=== PATIENT | female | born 1990 | race Caucasian/White ===

== ENCOUNTER 2016-10-24 13:54 | Emergency (ER) | payer OTHER ==
[2016-10-24] MEDS ORDERED: KETOROLAC 30 MG/ML 1 ML VIAL IVP STA (14:40)
[2016-10-24] MEDS ORDERED: SODIUM CHLORIDE 0.9% 1,000 ML IV ONE (14:40)
--- NOTE | 2016-10-24 14:56 | ED ---
Extremity Problem HPI - General Chief complaint: Extremity Problem,Nontraumatic Stated complaint: Leg Numbness/swelling Time Seen by Provider: 10/24/16 14:11 Source: patient Mode of arrival: ambulatory Limitations: no limitations - History of Present Illness Initial comments: 26-year-old female with a history of heroin abuse presented for evaluation of 3 weeks right lower extremity numbness tingling and swelling from the upper thigh down. She states she woke up one morning and her symptoms were present and are worse with any lower extremity movement or pressure. Her pain is alleviated when she lays on her left side and elevates the affected leg although the pain is only reduced and is still present. She denies discoloration of the right lower extremity or cold sensation but states she will feel numbness and tingling constantly and if she should move the leg have extreme pain that shoots throughout her entire leg. She denies any back pain abdominal pain or dysuria. There is no preceding trauma and she denies any low back pain following lifting or physical activity. She is a smoker but denies an control use, bleeding/clotting disorders, history of cancer or treatment for it , hemoptysis, recent surgery, recent immobilization for extended period of time. - Related Data Previous Rx's Medication Instructions Recorded Diazepam [Valium] 5 mg PO BID #6 tab 10/24/16 HYDROcodone/APAP 5-325MG [[place] 1 - 2 tab PO Q6HR PRN #14 tab 10/24/16 5-325] Ibuprofen [Motrin] 800 mg PO Q8HR PRN #20 tab 10/24/16 Allergies Allergy/AdvReac Type Severity Reaction Status Date / Time blueberry Allergy Rash/Hives Verified 10/24/16 14:28 tramadol Allergy Unknown Verified 10/24/16 14:28 Review of Systems ROS Statement: Those systems with pertinent positive or pertinent negative responses have been documented in the HPI. General: Patient denies fever, chills,nausea, or vomiting. HEENT: No visual changes. No eye pain. No nasal symptoms. No dysphagia.No odynophagia. No ENT pain. Cardiac: No chest pain. No palpitations. Pulmonary; No dyspnea. Denies cough. Denies hemoptysis. GI: No abdominal pain. No diarrhea. No constipation. No bowel habit changes. No melena. No hematochezia. : No dysuria.No hematuria. No hesitancy. No urgency. No renal lithiasis history. Musculoskeletal: No musculoskeletal pain. Swelling to the thigh of right lower extremity. Orthopedic: Denies fracture history. Denies injury. Integumentary: Denies rash. Denies pruritis. Neurologic: Denies any lateralizing weakness. Positive numbness and tingling from the right thigh distally.. No seizure activity. Denies TIA or CVA. Heme/Onc: Denies anemia. Denies cancer. Denies adenopathy. ROS Other: All systems not noted in ROS Statement are negative. Past Medical History Past Medical History: No Reported History Additional Past Medical History / Comment(s): heroin abuse History of Any Multi-Drug Resistant Organisms: None Reported Past Surgical History: Adenoidectomy, Tonsillectomy Past Anesthesia/Blood Transfusion Reactions: No Reported Reaction Past Psychological History: Anxiety, Depression, PTSD Smoking Status: Current every day smoker Past Alcohol Use History: None Reported Additional Past Alcohol Use History / Comment(s): Patient denies any alcohol use at this time. Past Drug Use History: Heroin Additional Drug Use History / Comment(s): Patient states that she uses IV herion for about three years. - Past Family History Mother Family Medical History: Cancer Father Family Medical History: Unable to Obtain General Exam - General Exam Comments Initial Comments: General: The patient is awake and alert, in no distress, and does not appear acutely ill. Eye: Pupils are equal, round and reactive to light, extra-ocular movements are intact; there is normal conjunctiva bilaterally. No signs of icterus. Ears, nose, mouth and throat: There are moist mucous membranes and no oral lesions. Neck: The neck is supple, there is no tenderness or JVD. Cardiovascular: There is a regular rate and rhythm. No murmur, rub or gallop is appreciated. Respiratory: Lungs are clear to auscultation, respirations are non-labored, breath sounds are equal. No wheezes, stridor, rales, or rhonchi. Gastrointestinal: Soft, non-distended, non-tender abdomen without masses or organomegaly noted. There is no rebound or guarding present. No CVA tenderness. Bowel sounds are unremarkable. Back: There is no tenderness to palpation in the midline. There is no obvious deformity. No rashes noted. Musculoskeletal: Normal ROM, no tenderness, There is no pedal edema. There is no calf tenderness or swelling. Sensation intact. Pulses equal bilaterally 2+. Neurological: CN II-XII intact, There are no obvious motor or sensory deficits. Coordination appears grossly intact. Speech is normal. Skin: Skin is warm and dry and no rashes or lesions are noted. Psychiatric: Cooperative, appropriate mood & affect, normal judgment. Limitations: no limitations Course Vital Signs 10/24/16 14:00 Temperature 97.5 F L Pulse Rate 94 Respiratory 20 Rate Blood Pressure 128/94 O2 Sat by Pulse 100 Oximetry Medical Decision Making - Medical Decision Making 26-year-old female with past medical history apparent abuse presented for evaluation of right thigh pain and swelling for the past 3 weeks. She states that the onset was sudden when she woke up one morning and has continued since with numbness and tingling radiating down the leg, swelling and firmness at the upper thigh. Pain is constant but mildly alleviated when she lays on her left side and worse with movement or pressure. She denies any preceding trauma, back pain, or abdominal pain. Physical examination reveals a right lower extremity that is neurovascularly intact with normal pulses, sensation, and motor function. Skin color is equal to the left leg and there is no abnormality noted to the right upper thigh. There is no back pain or belly pain to palpation. Straight leg test elicits thigh pain but there is no radiation down the leg to the ankle or foot and therefore is negative. Will obtain labs, right lower cavity duplex, and provide IV fluid and pain control. Labs are significant for an elevated d-dimer. Rest for labs revealed no significant abnormalities and the lower extremity duplex did not show a DVT. These results were discussed with the patient and through shared decision making she decided that she would prefer to be discharged without a CT chest with IV contrast to rule out PE. She was informed that she would need to follow -up with her primary care physician for repeat ultrasound within the next week or 2. She was further advised to return to this facility if her symptoms should worsen or persist including but not limited to: Right lower extremity discoloration, loss of sensation or motor function, loss of pulse in the right lower extremity, rapid swelling of the right lower extremity, shortness of breath, chest pain. She acknowledged an understanding of this information and agreed with this plan of care. - Lab Data Result diagrams: 10/24/16 15:00 10/24/16 15:00 Lab Results 10/24/16 10/24/16 10/24/16 Range/Units 15:00 15:00 15:00 WBC 7.2 (3.8-10.6) k/uL RBC 4.21 (3.80-5.40) m/uL Hgb 11.9 (11.4-16.0) gm/dL Hct 35.9 (34.0-46.0) % MCV 85.2 (80.0-100.0) fL MCH 28.4 (25.0-35.0) pg MCHC 33.3 (31.0-37.0) g/dL RDW 12.9 (11.5-15.5) % Plt Count 294 (150-450) k/uL Neutrophils % 73 % Lymphocytes % 18 % Monocytes % 6 % Eosinophils % 1 % Basophils % 0 % Neutrophils # 5.3 (1.3-7.7) k/uL Lymphocytes # 1.3 (1.0-4.8) k/uL Monocytes # 0.4 (0-1.0) k/uL Eosinophils # 0.1 (0-0.7) k/uL Basophils # 0.0 (0-0.2) k/uL D-Dimer 0.99 H (<0.60) mg/L FEU Sodium 140 (137-145) mmol/L Potassium 4.4 (3.5-5.1) mmol/L Chloride 105 (98-107) mmol/L Carbon Dioxide 23 (22-30) mmol/L Anion Gap 12 mmol/L BUN 5 L (7-17) mg/dL Creatinine 0.59 (0.52-1.04) mg/dL Est GFR (MDRD) Af Amer >60 (>60 ml/min/1.73 sqM) Est GFR (MDRD) Non-Af >60 (>60 ml/min/1.73 sqM) Glucose 184 H (74-99) mg/dL Calcium 9.3 (8.4-10.2) mg/dL Urine Color Urine Appearance (Clear) Urine pH (5.0-8.0) Ur Specific [place] (1.001-1.035) Urine Protein (Negative) Urine Glucose (UA) (Negative) Urine Ketones (Negative) Urine Blood (Negative) Urine Nitrate (Negative) Urine Bilirubin (Negative) Urine Urobilinogen (<2.0) mg/dL Ur Leukocyte Esterase (Negative) Urine RBC (0-5) /hpf Urine WBC (0-5) /hpf Ur Squamous Epith Cells (0-4) /hpf Urine Bacteria (None) /hpf Urine HCG, Qual (Not Detectd) 10/24/16 10/24/16 Range/Units 17:13 17:13 WBC (3.8-10.6) k/uL RBC (3.80-5.40) m/uL Hgb (11.4-16.0) gm/dL Hct (34.0-46.0) % MCV (80.0-100.0) fL MCH (25.0-35.0) pg MCHC (31.0-37.0) g/dL RDW (11.5-15.5) % Plt Count (150-450) k/uL Neutrophils % % Lymphocytes % % Monocytes % % Eosinophils % % Basophils % % Neutrophils # (1.3-7.7) k/uL Lymphocytes # (1.0-4.8) k/uL Monocytes # (0-1.0) k/uL Eosinophils # (0-0.7) k/uL Basophils # (0-0.2) k/uL D-Dimer (<0.60) mg/L FEU Sodium (137-145) mmol/L Potassium (3.5-5.1) mmol/L Chloride (98-107) mmol/L Carbon Dioxide (22-30) mmol/L Anion Gap mmol/L BUN (7-17) mg/dL Creatinine (0.52-1.04) mg/dL Est GFR (MDRD) Af Amer (>60 ml/min/1.73 sqM) Est GFR (MDRD) Non-Af (>60 ml/min/1.73 sqM) Glucose (74-99) mg/dL Calcium (8.4-10.2) mg/dL Urine Color Light Yellow Urine Appearance Cloudy H (Clear) Urine pH 6.5 (5.0-8.0) Ur Specific [place] 1.003 (1.001-1.035) Urine Protein Negative (Negative) Urine Glucose (UA) Negative (Negative) Urine Ketones Negative (Negative) Urine Blood Trace H (Negative) Urine Nitrate Positive H (Negative) Urine Bilirubin Negative (Negative) Urine Urobilinogen <2.0 (<2.0) mg/dL Ur Leukocyte Esterase Trace H (Negative) Urine RBC 1 (0-5) /hpf Urine WBC 9 H (0-5) /hpf Ur Squamous Epith Cells 12 H (0-4) /hpf Urine Bacteria Rare H (None) /hpf Urine HCG, Qual Not Detected (Not Detectd) Disposition Clinical Impression: Thigh pain, Elevated d-dimer, Asymptomatic bacteriuria Disposition: HOME SELF-CARE Condition: Stable Instructions: Deep Venous Thrombosis (ED), Leg Edema (ED) Prescriptions: Diazepam [Valium] 5 mg PO BID #6 tab HYDROcodone/APAP 5-325MG [[place] 5-325] 1 - 2 tab PO Q6HR PRN #14 tab PRN Reason: Analgesia Ibuprofen [Motrin] 800 mg PO Q8HR PRN #20 tab PRN Reason: Analgesia Referrals: None,Stated [Primary Care Provider] - 1-2 days Time of Disposition: 17:45
[2016-10-24 15:32] LABS: Anion Gap 12 mmol/L; Blood Urea Nitrogen 5 mg/dL (7-17); Calcium 9.3 mg/dL (8.4-10.2); Carbon Dioxide 23 mmol/L (22-30); Chloride 105 mmol/L (98-107); Glucose 184 mg/dL (74-99); Non-African American GFR(MDRD) >60 (>60 ml/min/1.73 sqM); Potassium 4.4 mmol/L (3.5-5.1); Sodium 140 mmol/L (137-145)
--- NOTE | 2016-10-24 15:34 | XR ---
EXAMINATION TYPE: XR lumbar spine 2 or 3V DATE OF EXAM: 10/24/2016 3:24 PM COMPARISON: 11/03/2014 HISTORY: 26-year-old female right-sided leg pain and back pain. TECHNIQUE: 3 views FINDINGS: 5 lumbar type vertebral bodies. There is mild facet arthropathy lower lumbar spine. Vertebral body he ights are preserved and alignment is maintained. IMPRESSION: Mild facet arthropathy lower lumbar spine. No vertebral compression collapse or malalignment.
[2016-10-24 15:36] LABS: Basophils % (A) 0 %; CH 28.8; Eosinophils # (A) 0.1 k/uL (0-0.7); Eosinophils % (A) 1 %; HCT 35.9 % (34.0-46.0); HDW 2.82; HGB 11.9 gm/dL (11.4-16.0); Luc # (Auto) 0.16; Luc % (Auto) 2; Lymphocytes # (A) 1.3 k/uL (1.0-4.8); Lymphocytes % (A) 18 %; MCH 28.4 pg (25.0-35.0); MCHC 33.3 g/dL (31.0-37.0); MCV 85.2 fL (80.0-100.0); Mean Platelet Volume 8.3; Monocytes # (A) 0.4 k/uL (0-1.0); Monocytes % (A) 6 %; Neutrophils # (A) 5.3 k/uL (1.3-7.7); Neutrophils % (A) 73 %; RBC 4.21 m/uL (3.80-5.40); RDW 12.9 % (11.5-15.5); WBC 7.2 k/uL (3.8-10.6); WBC (Perox) 7.95
--- NOTE | 2016-10-24 16:36 | US ---
EXAMINATION TYPE: US venous doppler duplex LE RT DATE OF EXAM: 10/24/2016 4:13 PM COMPARISON: NONE CLINICAL HISTORY: 26-year-old female with right leg numbness and swelling, with right leg pain in the posterior and medial thigh. TECHNIQUE: Doppler ultrasound examination of the right lower extremity. FINDINGS: SIDE PERFORMED: Right VESSELS IMAGED: External Iliac Vein (EIV) Common Femoral Vein Deep Femoral Vein Greater Saphenous Vein * Femoral Vein Popliteal Vein Small Saphenous Vein * Proximal Calf Veins (* superficial vessels) Right Leg: Appears negative for DVT IMPRESSION: No evidence for DVT within the right lower extremity imaged from the groin to the upper calf.
[2016-10-24 17:31] LABS: Appearance,Urine Cloudy (Clear); Bacteria,Urine Rare /hpf; Bilirubin,Urine Negative (Negative); Glucose,Urine (UA) Negative (Negative); Ketones,Urine Negative (Negative); Leukocyte Esterase,Urine Trace (Negative); Nitrite,Urine Positive (Negative); PH, Urine 6.5 (5.0-8.0); Particle Count 9134; Protein,Urine Negative (Negative); RBC,Urine 1 /hpf (0-5); Specific Gravity,Urine 1.003 (1.001-1.035); Squamous Epithelial Cell,Urine 12 /hpf (0-4); UA Billing (MACRO vs. MICRO) MICRO; Urobilinogen,Urine <2.0 mg/dL (<2.0); WBC,Urine 9 /hpf (0-5)
[2016-10-24 17:53] VITALS: BP 122/74; PULSE 88; RESP 18; TEMP 97.9
== END 2016-10-24 17:51 | disposition home or self-care (01) ==
LOC: EC 13:54
DX: M79.651 Pain in right thigh (principal); R79.1 Abnormal coagulation profile; R82.71 Bacteriuria; F17.200 Nicotine dependence, unspecified, uncomplicated; Z88.5 Allergy status to narcotic agent; F11.10 Opioid abuse, uncomplicated
CPT/HCPCS: 36415; 85379; 80048; 85025; 81001; 81025; 87086; 87077; 87186; 72100; 93971; 99284; 96374; 96361 ×3; J1885

== ENCOUNTER 2016-10-25 19:47 | Observation (INO) | payer OTHER ==
--- NOTE | 2016-10-25 21:47 | ED ---
General Adult HPI <Aleks Osullivan - Last Filed: 10/26/16 00:59> - General Source: patient, RN notes reviewed Mode of arrival: ambulatory Limitations: no limitations <Keri Morris - Last Filed: 10/26/16 03:22> - General Chief complaint: Recheck/Abnormal Lab/Rx Stated complaint: Leg Pain Time Seen by Provider: 10/25/16 21:19 - History of Present Illness Initial comments: This is a 26-year-old female presents with right leg pain 3 weeks. Patient states the pain is worse to the posterior right thigh. Patient states the pain occurred suddenly, patient states she woke up in the morning and when she sat on the toilet she noticed pain to the right thigh. Patient states the pain radiates down through the right leg and she has intermittent numbness. Patient denies any injury to the area. Patient denies any back pain. Patient admits to IV drug use and tobacco use. Patient states she was treated in the [facility] yesterday for this and sent home on [place] and Valium but these have not helped. Patient is able to ambulate but this is painful. Patient denies any recent fever, chills, shortness breath, chest pain, abdominal pain, nausea/vomiting/ diarrhea, hematuria, headache, or visual changes, or any other complaints. (Keri Morris) - Related Data Previous Rx's Medication Instructions Recorded Diazepam [Valium] 5 mg PO BID #6 tab 10/24/16 HYDROcodone/APAP 5-325MG [[place] 1 - 2 tab PO Q6HR PRN #14 tab 10/24/16 5-325] Ibuprofen [Motrin] 800 mg PO Q8HR PRN #20 tab 10/24/16 Allergies Allergy/AdvReac Type Severity Reaction Status Date / Time blueberry Allergy Rash/Hives Verified 10/24/16 14:28 tramadol Allergy Unknown Verified 10/24/16 14:28 Review of Systems ROS Other: All systems not noted in ROS Statement are negative. <Aleks Osullivan - Last Filed: 10/26/16 00:59> ROS Other: All systems not noted in ROS Statement are negative. <Keri Morris - Last Filed: 10/26/16 03:22> ROS Statement: Those systems with pertinent positive or pertinent negative responses have been documented in the HPI. Past Medical History Past Medical History: No Reported History Additional Past Medical History / Comment(s): heroin abuse History of Any Multi-Drug Resistant Organisms: None Reported Past Surgical History: Adenoidectomy, Tonsillectomy Past Anesthesia/Blood Transfusion Reactions: No Reported Reaction Past Psychological History: Anxiety, Depression, PTSD Smoking Status: Current every day smoker Past Alcohol Use History: None Reported Additional Past Alcohol Use History / Comment(s): Patient denies any alcohol use at this time. Past Drug Use History: Heroin Additional Drug Use History / Comment(s): Patient states that she uses IV herion for about three years. - Past Family History Mother Family Medical History: Cancer Father Family Medical History: Unable to Obtain <Keri Morris - Last Filed: 10/26/16 03:22> General Exam <Aleks Osullivan - Last Filed: 10/26/16 00:59> Limitations: no limitations <Keri Morris - Last Filed: 10/26/16 03:22> - General Exam Comments Initial Comments: General: The patient is awake and alert, in no distress, and does not appear acutely ill. Neck: The neck is supple, there is no tenderness or JVD. Cardiovascular: There is a regular rate and rhythm. No murmur, rub or gallop is appreciated. Respiratory: Lungs are clear to auscultation, respirations are non-labored, breath sounds are equal. No wheezes, stridor, rales, or rhonchi. Musculoskeletal: Patient is tender to the posterior right thigh. There is mild swelling to the medial aspect of the right thigh seen best with standing, but no erythema, warmth or ecchymosis. There is no tenderness over the lumbar spine paraspinal muscles. Full range of motion, strength 5/5 and Sensation intact. Posterior tibial pulses 2+ bilaterally. Neurological: A&O x 3. CN II-XII intact, There are no obvious motor or sensory deficits. Coordination appears grossly intact. Speech is normal. Skin: Skin is warm and dry and no rashes or lesions are noted. Psychiatric: Normal mood and affect. (Keri Morris) Course <Aleks Osullivan - Last Filed: 10/26/16 00:59> <Keri Morris - Last Filed: 10/26/16 03:22> Vital Signs 10/25/16 10/25/1617 20:46 22:37 00:47 Temperature 98.9 F 98.8 F Pulse Rate 118 H 110 H 100 Respiratory 20 20 18 Rate Blood Pressure 128/75 120/59 112/65 O2 Sat by Pulse 100 98 98 Oximetry 10/26/16 02:19 Temperature 98 F Pulse Rate 98 Respiratory 18 Rate Blood Pressure 111/55 O2 Sat by Pulse 98 Oximetry - Reevaluation(s) Reevaluation #1: 10/26/16 00:59 Case was discussed with Dr. Blakely, who will admit for hospital call. (Aleks Osullivan) Medical Decision Making - Lab Data Result diagrams: 10/25/16 22:13 10/25/16 22:13 <Aleks Osullivan - Last Filed: 10/26/16 00:59> - Lab Data Result diagrams: 10/25/16 22:13 10/25/16 22:13 <Keri Morris - Last Filed: 10/26/16 03:22> - Medical Decision Making Patient reevaluated by myself, Dr. Osullivan. Patient updated on results and plan. Patient will be admitted with IV antibiotics and infectious disease consult. Dr. Blakely has been paged for medical admission. (Aleks Osullivan) This is a 26-year-old female presents with right posterior leg pain 3 weeks. On physical exam Patient is tender to the posterior right thigh. There is mild swelling to the medial aspect of the right thigh seen best with standing, but no erythema, warmth or ecchymosis. There is no tenderness over the lumbar spine paraspinal muscles. Full range of motion, strength 5/5 and Sensation intact. Posterior tibial pulses 2+ bilaterally. Patient had an xray of the lumbar spine yesterday showing: Mild facet arthropathy lower lumbar spine. No vertebral compression clots or malalignment. Report read by Dr. Granger CT of the right lower extremity was done and reviewed showing: There is evidence of edema in the adductor taina muscle bundle of the right upper thigh and the posterior medial aspect with central fluid collection consistent with a small abscess surrounding edema within the muscle. No fracture. Reported by Dr. Chopra. Labs were drawn and UA/UC done and reviewed. Discussed results with patient. Blood cultures pending. Discussed this case with attending physician Dr. Osullivan who contacted Dr. Goodyear and patient will be admitted as an inpatient for IV antibiotics and ID consult. (Keri Morris) - Lab Data Lab Results 10/25/16 10/25/16 10/25/16 Range/Units 22:13 22:13 22:13 WBC 9.3 (3.8-10.6) k/uL RBC 3.71 L (3.80-5.40) m/uL Hgb 10.6 L (11.4-16.0) gm/dL Hct 30.7 L (34.0-46.0) % MCV 82.9 (80.0-100.0) fL MCH 28.5 (25.0-35.0) pg MCHC 34.3 (31.0-37.0) g/dL RDW 13.1 (11.5-15.5) % Plt Count 257 (150-450) k/uL Neutrophils % 66 % Lymphocytes % 25 % Monocytes % 6 % Eosinophils % 1 % Basophils % 0 % Neutrophils # 6.1 (1.3-7.7) k/uL Lymphocytes # 2.3 (1.0-4.8) k/uL Monocytes # 0.6 (0-1.0) k/uL Eosinophils # 0.1 (0-0.7) k/uL Basophils # 0.0 (0-0.2) k/uL Sodium 138 (137-145) mmol/L Potassium 4.4 (3.5-5.1) mmol/L Chloride 102 (98-107) mmol/L Carbon Dioxide 24 (22-30) mmol/L Anion Gap 12 mmol/L BUN 10 (7-17) mg/dL Creatinine 0.60 (0.52-1.04) mg/dL Est GFR (MDRD) Af Amer >60 (>60 ml/min/1.73 sqM) Est GFR (MDRD) Non-Af >60 (>60 ml/min/1.73 sqM) Glucose 95 (74-99) mg/dL Calcium 9.2 (8.4-10.2) mg/dL Total Bilirubin 0.4 (0.2-1.3) mg/dL AST 11 L (14-36) U/L ALT 24 (9-52) U/L Alkaline Phosphatase 69 (38-126) U/L Total Protein 7.1 (6.3-8.2) g/dL Albumin 3.7 (3.5-5.0) g/dL Urine Color Yellow Urine Appearance Cloudy H (Clear) Urine pH 6.5 (5.0-8.0) Ur Specific [place] 1.008 (1.001-1.035) Urine Protein Negative (Negative) Urine Glucose (UA) Negative (Negative) Urine Ketones Negative (Negative) Urine Blood Trace H (Negative) Urine Nitrate Positive H (Negative) Urine Bilirubin Negative (Negative) Urine Urobilinogen <2.0 (<2.0) mg/dL Ur Leukocyte Esterase Moderate H (Negative) Urine RBC 2 (0-5) /hpf Urine WBC 13 H (0-5) /hpf Ur Squamous Epith Cells 2 (0-4) /hpf Urine Bacteria Few H (None) /hpf Urine Mucus Many H (None) /hpf Disposition <Aleks Osullivan - Last Filed: 10/26/16 00:59> Decision Time: 01:51 <Keri Morris - Last Filed: 10/26/16 03:22> Clinical Impression: Abscess of muscle Disposition: ADMITTED IP TO THIS HOSP
[2016-10-25] MEDS ORDERED: RX INFO: IV CONTRAST WAS GIVEN 1 EACH MISC MISCELLANE PRN (21:49)
[2016-10-25] MEDS ORDERED: SODIUM CHLORIDE 0.9% 1,000 ML IV ONE (21:56)
[2016-10-25] MEDS ORDERED: ACETAMINOPHEN IV (For NPO) 1,000 MG in EMPTY BAG 1 BAG IVPB STA (21:56)
[2016-10-25 22:34] LABS: Basophils % (A) 0 %; CH 28.9; CHCM 35.1; Eosinophils # (A) 0.1 k/uL (0-0.7); Eosinophils % (A) 1 %; HCT 30.7 % (34.0-46.0); HDW 2.91; HGB 10.6 gm/dL (11.4-16.0); Luc # (Auto) 0.19; Luc % (Auto) 2; Lymphocytes # (A) 2.3 k/uL (1.0-4.8); Lymphocytes % (A) 25 %; MCH 28.5 pg (25.0-35.0); MCHC 34.3 g/dL (31.0-37.0); MCV 82.9 fL (80.0-100.0); Mean Platelet Volume 7.5; Monocytes # (A) 0.6 k/uL (0-1.0); Monocytes % (A) 6 %; Neutrophils # (A) 6.1 k/uL (1.3-7.7); Neutrophils % (A) 66 %; RBC 3.71 m/uL (3.80-5.40); RDW 13.1 % (11.5-15.5); WBC 9.3 k/uL (3.8-10.6); WBC (Perox) 9.53
[2016-10-25 22:49] LABS: ALT 24 U/L (9-52); AST 11 U/L (14-36); Alkaline Phosphatase 69 U/L (38-126); Anion Gap 12 mmol/L; Blood Urea Nitrogen 10 mg/dL (7-17); Calcium 9.2 mg/dL (8.4-10.2); Carbon Dioxide 24 mmol/L (22-30); Chloride 102 mmol/L (98-107); Glucose 95 mg/dL (74-99); Non-African American GFR(MDRD) >60 (>60 ml/min/1.73 sqM); Potassium 4.4 mmol/L (3.5-5.1); Sodium 138 mmol/L (137-145); Total Bilirubin 0.4 mg/dL (0.2-1.3); Total Protein 7.1 g/dL (6.3-8.2)
[2016-10-25 22:50] LABS: Appearance,Urine Cloudy (Clear); Bacteria,Urine Few /hpf; Bilirubin,Urine Negative (Negative); Glucose,Urine (UA) Negative (Negative); Ketones,Urine Negative (Negative); Leukocyte Esterase,Urine Moderate (Negative); Mucus,Urine Many /hpf; Nitrite,Urine Positive (Negative); PH, Urine 6.5 (5.0-8.0); Particle Count 63559; Protein,Urine Negative (Negative); RBC,Urine 2 /hpf (0-5); Specific Gravity,Urine 1.008 (1.001-1.035); Squamous Epithelial Cell,Urine 2 /hpf (0-4); UA Billing (MACRO vs. MICRO) MICRO; Urobilinogen,Urine <2.0 mg/dL (<2.0); WBC,Urine 13 /hpf (0-5)
--- NOTE | 2016-10-25 23:09 | CT ---
EXAMINATION TYPE: CT lower extremity RT w con DATE OF EXAM: 10/25/2016 10:38 PM COMPARISON: NONE HISTORY: abscess swelling pain to posterior right thigh CT DLP: 635.20 mGycm Automated exposure control for dose reduction was used. CONTRAST: Performed with IV Contrast, patient injected with 100 mL of Omnipaque 300. FINDINGS: There is a 12 x 8 cm area of relative low attenuation within the posterior muscles of the upper thigh on the right side. There is a central 2 cm fluid collection. I see no bony destructive process. Ther e is no evidence for fracture. I see no focal bone destruction. I see no pathologic enhancement. IMPRESSION: THERE IS EVIDENCE OF EDEMA IN THE ADDUCTOR BRITTNI MUSCLE BUNDLE OF THE RIGHT UPPER THIGH ON THE POSTE RIOR MEDIAL ASPECT WITH CENTRAL FLUID COLLECTION CONSISTENT WITH A SMALL ABSCESS AND SURROUNDING MICHAEL A WITHIN THE MUSCLE. NO FRACTURE.
[2016-10-26] MEDS ORDERED: MORPHINE SULFATE 2 MG/ML SYRINGE IV PRN (00:01)
[2016-10-26] MEDS ORDERED: IBUPROFEN 400 MG TAB PO PRN (01:29)
[2016-10-26] MEDS ORDERED: ACETAMINOPHEN TAB 325 MG TAB PO PRN (01:29)
[2016-10-26] MEDS ORDERED: NALOXONE 0.4 MG/ML 1 ML VIAL IV PRN (01:29)
[2016-10-26] MEDS ORDERED: VANCOMYCIN 1,000 MG in SODIUM CHLORIDE 0.9% 250 ML IVPB STA (01:32)
[2016-10-26] MEDS ORDERED: AMPICILLIN-SULBACTAM 3 GM in SODIUM CHLORIDE 0.9% 100 ML IVPB STA (01:50)
[2016-10-26] MEDS: MORPHINE SULFATE 2 MG/ML SYRINGE IV STA ×2 (02:08→12:47)
[2016-10-26] MEDS: SODIUM CHLORIDE 0.9% 1,000 ML IV SCH (03:31)
[2016-10-26] MEDS: MORPHINE SULFATE 4 MG/ML SYRINGE IV PRN ×4 (06:29→20:44)
[2016-10-26] MEDS ORDERED: AMPICILLIN-SULBACTAM 3 GM in SODIUM CHLORIDE 0.9% 50 ML IVPB SCH (08:00)
[2016-10-26] MEDS: AMPICILLIN-SULBACTAM 3 GM in SODIUM CHLORIDE 0.9% 100 ML IVPB SCH ×2 (11:16→16:57)
[2016-10-26] MEDS: cloNIDine HCL 0.1 MG TAB PO SCH ×3 (11:17→20:43)
--- NOTE | 2016-10-26 14:47 | HP ---
DATE OF ADMISSION: CHIEF COMPLAINT: Abscess in the thigh(?) HISTORY OF PRESENT ILLNESS: This 26-year-old IVDA was admitted through the emergency room. She came in complaining of an abscess on the right lower buttock area and was evaluated in the emergency room and admitted. Apparently this is "not visible." She is an everyday heroin IV drug abuser. She denies any fever or chills. REVIEW OF SYSTEMS: She has had no change in vision or hearing, chest pain, cough, hemoptysis, purulent sputum, heart disease, murmurs, hypertension, orthopnea, PND, syncope, abdominal pain, nausea, vomiting, hematemesis, melena, hematochezia, jaundice, hematuria, frequency, urgency, vaginal discharge, bleeding, arthralgias, diabetes, etc. Past medical history, personal and social histories are unremarkable, otherwise. She has had no surgery and she is not allergic to any meds. She denies being on any medications. She smokes about a pack of cigarettes a day. PHYSICAL EXAMINATION: Blood pressure 102/55 with a pulse of 49, respirations are 23, she is afebrile. In general, she appeared to be slender and in no acute distress, she is very agitated. Skin color is normal. Skin is warm and dry. The head, ears, eyes, nose, mouth, and throat were normal and the neck veins are not distended. Thyroid is not enlarged. The chest is clear. There are no rales or rhonchi. The cardiac exam is in normal sinus rhythm. No murmurs or extra sounds. The abdomen is soft and nontender. The upper extremities are normal. She points to the right lower buttock areas where the abscess is, but nothing can be seen. Neurologically, she is intact. IMPRESSION: 1. ? perineal abscess. 2. Intravenous drug abuse. PLAN: 1. Bed rest. 2. IV fluids. 3. General Surgery consult.
[2016-10-26 15:33] LABS: Mean Platelet Volume 7.5
[2016-10-26 15:35] LABS: INR 1.1 (<1.1); Prothrombin Time 11.3 sec (9.0-12.0)
[2016-10-26] MEDS ORDERED: IV VANCOMYCIN PER PHARMACY 1 EACH MISC MISCELLANE PRN (20:23)
[2016-10-26] MEDS: VANCOMYCIN 1,250 MG in SODIUM CHLORIDE 0.9% 250 ML IVPB SCH (21:11)
[2016-10-27] MEDS: MORPHINE SULFATE 4 MG/ML SYRINGE IV PRN ×2 (01:53→05:07)
[2016-10-27] MEDS: VANCOMYCIN 1,250 MG in SODIUM CHLORIDE 0.9% 250 ML IVPB SCH (05:08)
[2016-10-27 07:36] LABS: Basophils % (A) 0 %; CH 28.2; CHCM 32.7; Eosinophils # (A) 0.1 k/uL (0-0.7); Eosinophils % (A) 1 %; HCT 30.9 % (34.0-46.0); HDW 2.87; HGB 10.5 gm/dL (11.4-16.0); Luc # (Auto) 0.22; Luc % (Auto) 2; Lymphocytes # (A) 2.5 k/uL (1.0-4.8); Lymphocytes % (A) 27 %; MCH 29.3 pg (25.0-35.0); MCHC 33.8 g/dL (31.0-37.0); MCV 86.7 fL (80.0-100.0); Mean Platelet Volume 6.6; Monocytes # (A) 0.4 k/uL (0-1.0); Monocytes % (A) 4 %; Neutrophils % (A) 65 %; RBC 3.57 m/uL (3.80-5.40); RDW 12.8 % (11.5-15.5); WBC 9.2 k/uL (3.8-10.6); WBC (Perox) 9.77
[2016-10-27 07:54] LABS: ALT 29 U/L (9-52); AST 13 U/L (14-36); Alkaline Phosphatase 76 U/L (38-126); Anion Gap 11 mmol/L; Blood Urea Nitrogen 5 mg/dL (7-17); Calcium 8.7 mg/dL (8.4-10.2); Carbon Dioxide 22 mmol/L (22-30); Chloride 109 mmol/L (98-107); Glucose 121 mg/dL (74-99); Non-African American GFR(MDRD) >60 (>60 ml/min/1.73 sqM); Sodium 142 mmol/L (137-145); Total Bilirubin 0.3 mg/dL (0.2-1.3); Total Protein 6.6 g/dL (6.3-8.2)
--- NOTE | 2016-10-27 08:06 | CONS ---
DATE OF CONSULTATION: 10/26/2016. REASON FOR CONSULTATION: Right thigh abscess. HISTORY OF PRESENT ILLNESS: The patient is a 26-year-old female who has past medical history significant for IV drug use presenting to the ER with chief complaints of right medial and posterior thigh pain. Apparently has been going on for about 3 weeks now. The patient said one morning she woke up and when she sat on the toile she noticed pain in the right thigh area. The patient denies any history of any trauma. There is no swelling. There is no redness. The patient denies injecting into that area. The patient came to the [facility] ER on the and patient was evaluated. She did have a Doppler that was negative for DVT. The patient discharged home on and Presented back last night with chief complaints of persistent pain. Subsequently, re-evaluated by the ER physician when the patient did have a CT of the lower extremity that has been suggestive of a fluid collection in the abductor taina muscle bundle 12 cm likely an abscess with surrounding edema within the muscle. She did receive a dose of vancomycin and started on Unasyn and admitted to the hospital. I was asked to see the patient for further recommendation regarding antibiotics therapy. Patient did not recall if she has any history of MRSA skin and soft tissue infection. Currently no other lesions. Denies having any chest pain, shortness of breath or cough. No abdominal pain or diarrhea. REVIEW OF SYSTEMS: CONSTITUTIONAL: Positive for weakness but no high-grade fever. EYES: No complaint. ENT: No complaint. RESPIRATORY: No complaint. CARDIOVASCULAR: No complaint. GENITOURINARY: No complaint. MUSCULOSKELETAL: As per HPI. INTEGUMENT: No complaint. PSYCHOLOGICAL: No complaint. ENDOCRINE: No complaint. NEUROLOGICAL: No complaint. PAST MEDICAL HISTORY: Anxiety, depression and PTSD, and IV drug abuse. PAST SURGICAL HISTORY: Adenoidectomy, tonsillectomy. SOCIAL HISTORY: The patient current every day smoker. Patient denies any drinking; however does admit to IV drug use for the last 3 years. FAMILY HISTORY: Mother with history of cancer. ALLERGIES: TRAMADOL. Medications include the patient is currently on Catapres, Motrin, morphine sulfate, Narcan, and Unasyn. On examination, blood pressure is 100/64 with a pulse of 64, temperature 100.8. She is 94% on room air. General description is a middle-age female lying in bed in no distress. No tachypnea or accessory muscle of respiration use. HEENT examination shows slight pallor. There is no scleral icterus. Oral mucous membrane is dry. NECK: Trachea central, no thyromegaly. LUNGS: Unlabored breathing. Clear to auscultation anteriorly. HEART: S1, S2 regular rate and rhythm. ABDOMEN: Soft. No tenderness. Right thigh mid and posterior. I did not feel any significant induration or swelling or tenderness to touch. SKIN EXAMINATION: No rash or mass palpable. NEUROLOGICAL: Patient is awake, alert, oriented. Mood and affect normal. LABS: Hemoglobin is 10.3, white count 9.3 with a BUN of 12, creatinine 0.6. Urine was slightly positive. Blood culture has been done which is currently pending. DIAGNOSTIC IMPRESSION AND PLAN: Patient with right mid and posterior thigh pain for about 2 to 3 weeks, now with a high grade fever with CT suspicious for an abscess in a patient who did have history of IV drug use with a question of possible MRSA infection. PLAN: 1. Discontinue Unasyn. 2. Start patient on Vancomycin, pharmacy to dose. 3. Will obtain intervention radiology consultation for drainage of this area and send the fluid for constant culture. 4. Will follow up on the clinical condition and cultures to further adjust the medication if needed. Thank you for this consultation. Will follow this patient along with you. JOSS
[2016-10-27] MEDS ORDERED: HYDROcodone/APAP 5-325MG 1 EACH TAB PO PRN (09:18)
--- NOTE | 2016-10-27 09:29 | P.PN ---
Subjective 26-year-old who presented to the ER with a chief complaint of right medial posterior upper thigh pain. Patient does have a significant past medical history for IV drug use. Apparently the pain started 3 weeks prior she noted it. Patient denied any trauma. There is no redness there is no swelling. Patient denied that she injected into that area. Patient came to the emergency room at [facility] on October 24 was evaluated had a Doppler done which was negative for DVT and was discharged home with [place]. Patient reports presented to the emergency room for persistent pain. Was reevaluated in the emergency room did have a CAT scan of the lower extremity it is suggested of fluid collection in the abductor taina muscle 12 cm likely an abscess with surrounding edema within the muscle. Patient did receive a dose of IV vancomycin and was started on Unasyn. Patient is scheduled today by interventional radiology for possible drainage of this area. Patients being followed by infectious disease. Objective - Vital Signs Vital signs: Vital Signs Temp 98.9 F 10/27/16 08:13 Pulse 75 10/27/16 08:13 Resp 16 10/27/16 08:13 BP 93/51 10/27/16 08:13 Pulse Ox 99 10/27/16 08:13 Intake & Output 10/26/16 10/27/16 10/27/16 18:59 06:59 18:59 Intake Total 444 Balance 444 Intake: Oral 444 Other: Voiding Method Toilet Toilet # Voids 4 2 - Exam Physical exam 26-year-old female resting in bed scheduled today for interventional radiology to evaluate the right upper thigh crushable abscess Lungs essentially clear no shortness of breath no cough Heart S1-S2 audible regular no murmur noted denying chest pain Abdomen soft nontender reports no nausea vomiting Extremities no pedal edema noted right posterior mid thigh tenderness to the touch not able to appreciate any significant swelling or induration Skin no skin rash noted no open sores noted - Labs CBC & Chem 7: 10/27/16 07:02 10/27/16 07:02 Labs: Abnormal Lab Results - Last 24 Hours (Table) 10/27/16 10/27/16 Range/Units 07:02 07:02 RBC 3.57 L (3.80-5.40) m/uL Hgb 10.5 L (11.4-16.0) gm/dL Hct 30.9 L (34.0-46.0) % Chloride 109 H (98-107) mmol/L BUN 5 L (7-17) mg/dL Glucose 121 H (74-99) mg/dL AST 13 L (14-36) U/L Albumin 3.1 L (3.5-5.0) g/dL Assessment and Plan Plan: Impression Present on admission right mid posterior thigh pain onset 2-3 weeks prior computed tomography scan suggest abscess Low-grade temp persist History of IV drug use with a possible "MRSA infection febrile leukocytosis suspect due to abscess right posterior mid thigh CAT scan of the right upper thigh shows evidence of a 12 x 8 cm attenuation suspect fluid abscess not ruled out Polysubstance abuse IV heroin on Anxiety depressive disorder nonspecified Current every day smoker Plan Await infectious disease recommendations antibiotic therapy Scheduled today by interventional radiology for the possible drainage of the abscess in the right posterior upper thigh Pain control Monitor for heroin withdrawal continue Catapres 0.3 3 times a day Monitor blood pressure and heart rate address as indicated DVT and GI prophylaxis Continue IV vancomycin as ordered IV hydration IV fluid at 75 an hour Further recommendations pending The above dictated assessment and findings were discussed with Dr. Blakely Impression and the plan of care have been dictated as directed. Noemi Renner nurse practitioner acting as a scribe for Dr. Blakely
--- NOTE | 2016-10-27 10:59 | US ---
EXAMINATION TYPE: US asp abscess/hemat/cyst ultrasound-guided aspiration of thigh abscess DATE OF EXAM: 10/27/2016 10:49 AM HISTORY: Thigh abscess, mass. Correlation to CT lower extremity 25 October 2016 FINDINGS: Maximal barrier technique was utilized. The skin overlying a suitable path to the patient' s thigh abnormality was localized with ultrasound and the overlying skin prepped and draped. Ultraso und was utilized with sterile technique. Lidocaine was used for local anesthesia. A skin khris was m connie with a scalpel. An 20-gauge needle was advanced under direct ultrasound guidance and aspirated s pecimen obtained of the abscess, approximately 5 cc purulent material was obtained. Specimen submitt ed in formalin to microbiology. Following the procedure, hemostasis achieved and the patient is disc harged in stable condition without complication. Impression: status POST ULTRASOUND GUIDED ASPIRATION BIOPSY OF right thigh abscess, microbiology IS P ENDING. THIS PROCEDURE IS PERFORMED BY THE UNDERSIGNED.
[2016-10-27 12:46] VITALS: BP 119/73; PULSE 87; RESP 16; TEMP 97.5
[2016-10-27] MEDS: cloNIDine HCL 0.1 MG TAB PO SCH (13:04)
[2016-10-27] MEDS: SODIUM CHLORIDE 0.9% 1,000 ML IV SCH (13:05)
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
[2016-10-27] MEDS ORDERED: FAMOTIDINE 20 MG TAB PO SCH (21:00)
[2016-10-28] MEDS ORDERED: VANCOMYCIN TROUGH DUE 1 EACH MISC MISCELLANE ONE (05:00)
--- NOTE | 2016-10-28 14:16 | PN ---
DATE OF SERVICE: 10/27/2016 CHIEF COMPLAINT: Abscess in the buttock. HISTORY OF PRESENT ILLNESS: This lady is going down today for incision and drainage. PHYSICAL EXAM: Chest is clear and cardiac exam is normal and the abdomen is soft, nontender. Abscess could not be palpated. IMPRESSION: Perineal abscess. PLAN: Incision and drainage today or percutaneous evacuation with needle. ADDENDUM: After she got back to the floor, she signed herself out AGAINST MEDICAL ADVICE.
== END 2016-10-27 12:57 | disposition left against medical advice (07) ==
LOC: EC 19:47 → 3OBS 10-26 01:51 → INTOOBSV 10-27 10:06 → OBSVTOIN 10-27 10:06
PROVIDERS: ADMIT Family Medicine; ATTEND Family Medicine
DX: L02.415 Cutaneous abscess of right lower limb (principal); F11.23 Opioid dependence with withdrawal; B95.62 Methicillin resistant Staphylococcus aureus infection as the cause of diseases classified elsewhere; D72.829 Elevated white blood cell count, unspecified; R50.9 Fever, unspecified; F41.9 Anxiety disorder, unspecified; F32.9 Major depressive disorder, single episode, unspecified; F43.10 Post-traumatic stress disorder, unspecified; M46.96 Unspecified inflammatory spondylopathy, lumbar region; R20.0 Anesthesia of skin; R53.1 Weakness; F17.210 Nicotine dependence, cigarettes, uncomplicated; Z79.1 Long term (current) use of non-steroidal anti-inflammatories (NSAID); Z53.21 Procedure and treatment not carried out due to patient leaving prior to being seen by health care provider; Z79.899 Other long term (current) drug therapy; Z80.9 Family history of malignant neoplasm, unspecified; Z88.5 Allergy status to narcotic agent; Z91.018 Allergy to other foods
CPT/HCPCS: 10160 ×2; 99285; 96365; 96366; 96368; 96375; 96376; 36415 ×2; 80053 ×2; 85025 ×2; 85049; 85610; 81001; 87040; 87070; 87086; 87205; 87075; 87077; 87186; 73701; G0378 ×3; J3370 ×2; J2270 ×3; Q9967; J0295; J0131; 96361

== ENCOUNTER 2018-02-12 10:17 | Emergency (ER) | payer OTHER ==
[2018-02-12 10:41] VITALS: RESP 18
[2018-02-12] MEDS ORDERED: KETOROLAC 60 MG/2 ML VIAL IM STA (11:02)
[2018-02-12] MEDS ORDERED: Acetaminophen-Codeine 300-30mg TAB PO STA (11:02)
--- NOTE | 2018-02-12 12:06 | XR ---
EXAMINATION TYPE: XR sacrum coccyx , 3 VIEWS DATE OF EXAM ORDERED: 02/12/2018 HISTORY: Pain. COMPARISON: None. FINDINGS: No fracture, dislocation or other acute osseous lesion is seen. IMPRESSION: NORMAL SACRUM AND COCCYX.
--- NOTE | 2018-02-12 12:07 | XR ---
EXAMINATION TYPE: XR lumbosacral spine min 4V , 5 VIEWS DATE OF EXAM ORDERED: 02/12/2018 HISTORY: Pain. COMPARISON: Previous study dated 10/24/2016. FINDINGS: Review body height and alignment are maintained. There is no spondylolysis or spondylolist hesis. There is mild facet arthropathy in the L4-5 and L5-S1 facets. The pedicles are intact. IMPRESSION: 1. NO ACUTE OSSEOUS LESION. 2. MILD DEGENERATIVE CHANGE.
--- NOTE | 2018-02-12 12:08 | ED ---
General Adult HPI - General Chief complaint: Back Pain/Injury Stated complaint: Tailbone Pain Time Seen by Provider: 02/12/18 10:46 Source: patient, RN notes reviewed, old records reviewed Mode of arrival: ambulatory Limitations: no limitations - History of Present Illness Initial comments: Records thoroughly reviewed, patient's in no acute distress - Related Data Previous Rx's Medication Instructions Recorded Diazepam [Valium] 5 mg PO BID #6 tab 10/24/16 HYDROcodone/APAP 5-325MG [[place] 1 - 2 tab PO Q6HR PRN #14 tab 10/24/16 5-325] Ibuprofen [Motrin] 800 mg PO Q8HR PRN #20 tab 10/24/16 Allergies Allergy/AdvReac Type Severity Reaction Status Date / Time blueberry Allergy Rash/Hives Verified 02/12/18 10:41 tramadol Allergy Unknown Verified 02/12/18 10:41 cyclobenzaprine AdvReac Unknown Verified 02/12/18 10:41 [From Flexeril] Review of Systems ROS Statement: Those systems with pertinent positive or pertinent negative responses have been documented in the HPI. ROS Other: All systems not noted in ROS Statement are negative. Past Medical History Past Medical History: No Reported History Additional Past Medical History / Comment(s): heroin abuse History of Any Multi-Drug Resistant Organisms: None Reported Past Surgical History: Adenoidectomy, Tonsillectomy Past Anesthesia/Blood Transfusion Reactions: No Reported Reaction Past Psychological History: Anxiety, Depression, PTSD Smoking Status: Current every day smoker Past Alcohol Use History: None Reported Past Drug Use History: None Reported, Heroin - Past Family History Mother Family Medical History: Cancer Father Family Medical History: Unable to Obtain General Exam - General Exam Comments Initial Comments: Left rib tenderness Limitations: no limitations General appearance: alert, in no apparent distress Head exam: Present: atraumatic, normocephalic, normal inspection Eye exam: Present: normal appearance, PERRL, EOMI. Absent: scleral icterus, conjunctival injection, periorbital swelling ENT exam: Present: normal exam, mucous membranes moist Neck exam: Present: normal inspection. Absent: tenderness, meningismus, lymphadenopathy Respiratory exam: Present: normal lung sounds bilaterally. Absent: respiratory distress, wheezes, rales, rhonchi, stridor Cardiovascular Exam: Present: regular rate, normal rhythm, normal heart sounds. Absent: systolic murmur, diastolic murmur, rubs, gallop, clicks GI/Abdominal exam: Present: soft, normal bowel sounds. Absent: distended, tenderness, guarding, rebound, rigid Extremities exam: Present: normal inspection, full ROM, normal capillary refill. Absent: tenderness, pedal edema, joint swelling, calf tenderness Back exam: Present: normal inspection Neurological exam: Present: alert, oriented X3, CN II-XII intact Psychiatric exam: Present: normal affect, normal mood Skin exam: Present: warm, dry, intact, normal color. Absent: rash Course Vital Signs 02/12/18 10:38 Temperature 98.1 F Pulse Rate 100 Respiratory 18 Rate Blood Pressure 124/76 O2 Sat by Pulse 99 Oximetry - Reevaluation(s) Reevaluation #1: 02/12/18 12:07 Patient is in no acute distress or pain 02/12/18 12:12 Shows adequate pain control currently Medical Decision Making - Medical Decision Making 27 cemented ER status post fall, x-ray negative for fracture or traumatic injury. Patient be transferred for L&D for stress test nonstress test of baby - Radiology Data Radiology results: report reviewed (X-ray rib study negative), image reviewed Disposition Clinical Impression: Fall, Coccyx contusion Disposition: HOME SELF-CARE Condition: Good Instructions: Acute Low Back Pain (ED), Coccyx Injury (ED) Is patient prescribed a controlled substance at d/c from ED?: No Referrals: None,Stated [Primary Care Provider] - 1-2 days
[2018-02-12 12:40] VITALS: BP 116/59; PULSE 64; TEMP 97.7
== END 2018-02-12 12:40 | disposition home or self-care (01) ==
LOC: EC 10:17
DX: S30.0XXA Contusion of lower back and pelvis, initial encounter (principal); F17.200 Nicotine dependence, unspecified, uncomplicated; Z91.018 Allergy to other foods; Z88.6 Allergy status to analgesic agent; Z88.8 Allergy status to other drugs, medicaments and biological substances; W10.9XXA Fall (on) (from) unspecified stairs and steps, initial encounter; Y92.89 Other specified places as the place of occurrence of the external cause
CPT/HCPCS: 72110; 72220; 99284; 96372; J1885

== ENCOUNTER 2018-03-19 15:31 | Emergency (ER) | payer OTHER ==
[2018-03-19 15:42] VITALS: BP 124/82; PULSE 91; RESP 18; TEMP 98.3
[2018-03-19] MEDS ORDERED: PENICILLIN VK 500MG STARTER 4 TAB BTL PO STA (16:21)
--- NOTE | 2018-03-19 16:26 | ED ---
General Adult HPI - General Chief complaint: Dental/Oral Stated complaint: dental pain Time Seen by Provider: 03/19/18 15:43 Source: patient, RN notes reviewed, old records reviewed Mode of arrival: ambulatory Limitations: no limitations - History of Present Illness Initial comments: This Patient is a 27-year-old female chief complaint of lower dental pain over tooth #30. Patient states that she has had a history of issues with this tooth in the past. She's had other teeth removed. She does not have a dentist at this time. Patient states that she also questions that she may be . She states she's taken urine test at home which have been negative. Patient states that she her last menstrual period was beginning of last month. Patient reports he did have a negative urine hCG today. Patient denies any foul discharge from the mouth. Denies any pain with opening and closing the mouth. No fevers or chills or swelling. - Related Data Previous Rx's Medication Instructions Recorded Ibuprofen [Motrin] 800 mg PO Q8HR PRN #20 tab 10/24/16 Penicillin V Potassium [Pen Vee K] 500 mg PO QID #40 tablet 03/19/18 Allergies Allergy/AdvReac Type Severity Reaction Status Date / Time blueberry Allergy Rash/Hives Verified 03/19/18 15:39 tramadol Allergy Unknown Verified 03/19/18 15:39 cyclobenzaprine AdvReac Unknown Verified 03/19/18 15:39 [From Flexeril] Review of Systems ROS Statement: Those systems with pertinent positive or pertinent negative responses have been documented in the HPI. ROS Other: All systems not noted in ROS Statement are negative. Past Medical History Past Medical History: No Reported History Additional Past Medical History / Comment(s): heroin abuse History of Any Multi-Drug Resistant Organisms: None Reported Past Surgical History: Adenoidectomy, Tonsillectomy Past Anesthesia/Blood Transfusion Reactions: No Reported Reaction Past Psychological History: Anxiety, Depression, PTSD Smoking Status: Current every day smoker Past Alcohol Use History: None Reported Past Drug Use History: None Reported, Heroin - Past Family History Mother Family Medical History: Cancer Father Family Medical History: Unable to Obtain General Exam - General Exam Comments Initial Comments: This patient's a 27-year-old female. Alert and oriented. No significant distress. Limitations: no limitations General appearance: alert, in no apparent distress Head exam: Present: atraumatic, normocephalic, normal inspection Eye exam: Present: normal appearance, PERRL, EOMI. Absent: scleral icterus, conjunctival injection, periorbital swelling ENT exam: Present: normal exam, mucous membranes moist. Absent: normal oropharynx (Dental caries throughout all of the teeth. Significant broken tooth #30.) Neck exam: Present: normal inspection. Absent: tenderness, meningismus, lymphadenopathy Respiratory exam: Present: normal lung sounds bilaterally. Absent: respiratory distress, wheezes, rales, rhonchi, stridor Cardiovascular Exam: Present: regular rate, normal rhythm, normal heart sounds. Absent: systolic murmur, diastolic murmur, rubs, gallop, clicks GI/Abdominal exam: Present: soft, normal bowel sounds. Absent: distended, tenderness, guarding, rebound, rigid Extremities exam: Present: normal inspection, full ROM, normal capillary refill. Absent: tenderness, pedal edema, joint swelling, calf tenderness Back exam: Present: normal inspection Neurological exam: Present: alert, oriented X3, CN II-XII intact Psychiatric exam: Present: normal affect, normal mood Skin exam: Present: warm, dry, intact, normal color. Absent: rash Course Vital Signs 03/19/18 15:39 Temperature 98.3 F Pulse Rate 91 Respiratory 18 Rate Blood Pressure 124/82 O2 Sat by Pulse 99 Oximetry Medical Decision Making - Medical Decision Making 27-year-old female presents with chief complaint of dental pain. Patient has dental caries. No evidence of a broken tooth #30. Patient also concern for . Discussed I'll check a urine hCG. Patient states that she wanted a blood hCG. Discussed if she cannot produce urine sample later can check HCG. Discussed patient should not be taking any narcotic medication or Motrin if she is possibly . Discussed I will discharge her with a prescription for Pen-Vee K. Patient left the emergency room without discharge instructions or prescription Disposition Clinical Impression: Pain, dental, Possible , not confirmed Disposition: HOME SELF-CARE Condition: Good Instructions: Dental Caries (ED) Prescriptions: Penicillin V Potassium [Pen Vee K] 500 mg PO QID #40 tablet Is patient prescribed a controlled substance at d/c from ED?: No When asked, does pt state using other controlled substances?: No If prescribed controlled substance>3 days was MAPS reviewed?: No If opioid is for acute pain is fill amount 7 days or less?: No If Rx opioid, was Start Talking consent form obtained?: No Referrals: None,Stated [Primary Care Provider] - 1-2 days Time of Disposition: 16:59
== END 2018-03-19 16:46 | disposition home or self-care (01) ==
LOC: EC 15:31
DX: K02.9 Dental caries, unspecified (principal); Z32.00 Encounter for pregnancy test, result unknown; F17.200 Nicotine dependence, unspecified, uncomplicated; Z88.5 Allergy status to narcotic agent; Z88.8 Allergy status to other drugs, medicaments and biological substances; Z91.018 Allergy to other foods
CPT/HCPCS: 99283

== ENCOUNTER 2018-10-25 23:47 | Emergency (ER) | payer OTHER ==
[2018-10-25 23:56] VITALS: BP 99/65; PULSE 120; RESP 18; TEMP 98.9
--- NOTE | 2018-10-26 00:18 | ED ---
Abdominal Pain HPI - General Source: patient, RN notes reviewed Mode of arrival: ambulatory Limitations: no limitations <Gurjit Huffman - Last Filed: 10/26/18 01:28> <Mechelle Chris - Last Filed: 10/26/18 03:51> - General Chief Complaint: Abdominal Pain Stated Complaint: Cramps, Time Seen by Provider: 10/26/18 00:00 - History of Present Illness Initial Comments: 28-year-old female presents emergency Department with chief complaint of abdominal cramping. Patient states that she just found out she is . Patient states that she is A1. Patient denies any current vaginal bleeding or vaginal discharge. She does have urinary frequency with no dysuria denies fever, chills. Patient denies any back pain, flank pain, chest pain or shortness of breath. (Gurjit Huffman) - Related Data Previous Rx's Medication Instructions Recorded Ibuprofen [Motrin] 800 mg PO Q8HR PRN #20 tab 10/24/16 Penicillin V Potassium [Pen Vee K] 500 mg PO QID #40 tablet 03/19/18 Cephalexin [Keflex] 500 mg PO Q8HR #21 cap 10/26/18 Allergies Allergy/AdvReac Type Severity Reaction Status Date / Time blueberry Allergy Rash/Hives Verified 10/25/18 23:56 tramadol Allergy Unknown Verified 10/25/18 23:56 cyclobenzaprine AdvReac Unknown Verified 10/25/18 23:56 [From Flexeril] Review of Systems ROS Other: All systems not noted in ROS Statement are negative. <Gurjit Huffman - Last Filed: 10/26/18 01:28> ROS Other: All systems not noted in ROS Statement are negative. <Mechelle Chris - Last Filed: 10/26/18 03:51> ROS Statement: Those systems with pertinent positive or pertinent negative responses have been documented in the HPI. Past Medical History Past Medical History: No Reported History Additional Past Medical History / Comment(s): heroin abuse, History of Any Multi-Drug Resistant Organisms: None Reported Past Surgical History: Adenoidectomy, Tonsillectomy Past Anesthesia/Blood Transfusion Reactions: No Reported Reaction Past Psychological History: Anxiety, Depression, PTSD Smoking Status: Current every day smoker Past Alcohol Use History: None Reported Past Drug Use History: None Reported - Past Family History Mother Family Medical History: Cancer Father Family Medical History: Unable to Obtain <Gurjit Huffman - Last Filed: 10/26/18 01:28> General Exam Limitations: no limitations General appearance: alert, in no apparent distress Head exam: Present: atraumatic, normocephalic, normal inspection Respiratory exam: Present: normal lung sounds bilaterally. Absent: respiratory distress, wheezes, rales, rhonchi, stridor Cardiovascular Exam: Present: regular rate, normal rhythm, normal heart sounds. Absent: systolic murmur, diastolic murmur, rubs, gallop, clicks GI/Abdominal exam: Present: soft, normal bowel sounds. Absent: distended, tenderness, guarding, rebound, rigid Back exam: Absent: CVA tenderness (R), CVA tenderness (L) Psychiatric exam: Present: normal affect, normal mood Skin exam: Present: warm, dry, intact, normal color. Absent: rash <Gurjit Huffman - Last Filed: 10/26/18 01:28> Vital Signs 10/25/18 23:52 Temperature 98.9 F Pulse Rate 120 H Respiratory 18 Rate Blood Pressure 99/65 O2 Sat by Pulse 98 Oximetry Medical Decision Making - Lab Data Result diagrams: 10/26/18 00:59 10/26/18 00:59 <Gurjit Huffman - Last Filed: 10/26/18 01:28> - Lab Data Result diagrams: 10/26/18 00:59 10/26/18 00:59 <Mechelle Chris - Last Filed: 10/26/18 03:51> - Medical Decision Making 48-year-old female presented for abdominal cramping early . All trauma to obtain shows evidence of intrauterine 6 weeks and 3 days. Patient has no evidence of urinary tract infection. Patient was given Rocephin emergency department will be discharged on Keflex return parameters were discussed. Urine was cultured. (Gurjit Huffman) I was available for consultation in the emergency department. The history and physical exam were done by the midlevel provider. I was consulted for this patient's care. I reviewed the case with the midlevel provider and based on their presentation of the patient, I agree with the assessment, medical decision making and plan of care as documented. (Mechelle Chris) - Lab Data Lab Results 10/26/18 10/26/18 10/26/18 Range/Units 00:01 00:59 00:59 WBC (3.8-10.6) k/uL RBC (3.80-5.40) m/uL Hgb (11.4-16.0) gm/dL Hct (34.0-46.0) % MCV (80.0-100.0) fL MCH (25.0-35.0) pg MCHC (31.0-37.0) g/dL RDW (11.5-15.5) % Plt Count (150-450) k/uL Neutrophils % % Lymphocytes % % Monocytes % % Eosinophils % % Basophils % % Neutrophils # (1.3-7.7) k/uL Lymphocytes # (1.0-4.8) k/uL Monocytes # (0-1.0) k/uL Eosinophils # (0-0.7) k/uL Basophils # (0-0.2) k/uL Sodium 139 (137-145) mmol/L Potassium 3.9 (3.5-5.1) mmol/L Chloride 109 H (98-107) mmol/L Carbon Dioxide 20 L (22-30) mmol/L Anion Gap 10 mmol/L BUN 15 (7-17) mg/dL Creatinine 0.71 (0.52-1.04) mg/dL Est GFR (CKD-EPI)AfAm >90 (>60 ml/min/1.73 sqM) Est GFR (CKD-EPI)NonAf >90 (>60 ml/min/1.73 sqM) Glucose 100 H (74-99) mg/dL Calcium 10.3 H (8.4-10.2) mg/dL HCG, Quant 19535.8 mIU/mL Urine Color Yellow Urine Appearance Cloudy H (Clear) Urine pH 5.5 (5.0-8.0) Ur Specific Clemons 1.024 (1.001-1.035) Urine Protein 1+ H (Negative) Urine Glucose (UA) Negative (Negative) Urine Ketones Negative (Negative) Urine Blood Negative (Negative) Urine Nitrite Positive H (Negative) Urine Bilirubin Negative (Negative) Urine Urobilinogen <2.0 (<2.0) mg/dL Ur Leukocyte Esterase Large H (Negative) Urine RBC 6 H (0-5) /hpf Urine WBC 50 H (0-5) /hpf Ur Squamous Epith Cells 18 H (0-4) /hpf Urine Bacteria Many H (None) /hpf Urine Mucus Few H (None) /hpf Blood Type AB Negative Blood Type Recheck No 10/26/18 Range/Units 00:59 WBC 13.1 H (3.8-10.6) k/uL RBC 4.43 (3.80-5.40) m/uL Hgb 13.4 (11.4-16.0) gm/dL Hct 38.9 (34.0-46.0) % MCV 87.8 (80.0-100.0) fL MCH 30.3 (25.0-35.0) pg MCHC 34.5 (31.0-37.0) g/dL RDW 12.4 (11.5-15.5) % Plt Count 194 (150-450) k/uL Neutrophils % 71 % Lymphocytes % 23 % Monocytes % 4 % Eosinophils % 1 % Basophils % 0 % Neutrophils # 9.2 H (1.3-7.7) k/uL Lymphocytes # 2.9 (1.0-4.8) k/uL Monocytes # 0.5 (0-1.0) k/uL Eosinophils # 0.2 (0-0.7) k/uL Basophils # 0.0 (0-0.2) k/uL Sodium (137-145) mmol/L Potassium (3.5-5.1) mmol/L Chloride (98-107) mmol/L Carbon Dioxide (22-30) mmol/L Anion Gap mmol/L BUN (7-17) mg/dL Creatinine (0.52-1.04) mg/dL Est GFR (CKD-EPI)AfAm (>60 ml/min/1.73 sqM) Est GFR (CKD-EPI)NonAf (>60 ml/min/1.73 sqM) Glucose (74-99) mg/dL Calcium (8.4-10.2) mg/dL HCG, Quant mIU/mL Urine Color Urine Appearance (Clear) Urine pH (5.0-8.0) Ur Specific Clemons (1.001-1.035) Urine Protein (Negative) Urine Glucose (UA) (Negative) Urine Ketones (Negative) Urine Blood (Negative) Urine Nitrite (Negative) Urine Bilirubin (Negative) Urine Urobilinogen (<2.0) mg/dL Ur Leukocyte Esterase (Negative) Urine RBC (0-5) /hpf Urine WBC (0-5) /hpf Ur Squamous Epith Cells (0-4) /hpf Urine Bacteria (None) /hpf Urine Mucus (None) /hpf Blood Type Blood Type Recheck Disposition Is patient prescribed a controlled substance at d/c from ED?: No Time of Disposition: 01:30 <Gurjit Huffman - Last Filed: 10/26/18 01:28> <Mechelle Chris P - Last Filed: 10/26/18 03:51> Clinical Impression: UTI (urinary tract infection), Abdominal pain in Disposition: HOME SELF-CARE Condition: Stable Instructions: Abdominal Pain in (ED) Additional Instructions: Please return to the Emergency Department if symptoms worsen or any other concerns. Prescriptions: Cephalexin [Keflex] 500 mg PO Q8HR #21 cap Referrals: None,Stated [Primary Care Provider] - 1-2 days
[2018-10-26 00:32] LABS: Appearance,Urine Cloudy (Clear); Bacteria,Urine Many /hpf; Bilirubin,Urine Negative (Negative); Blood,Urine Negative (Negative); Color,Urine Yellow; Glucose,Urine (UA) Negative (Negative); Ketones,Urine Negative (Negative); Leukocyte Esterase,Urine Large (Negative); Mucus,Urine Few /hpf; Nitrite,Urine Positive (Negative); PH, Urine 5.5 (5.0-8.0); Protein,Urine 1+ (Negative); RBC,Urine 6 /hpf (0-5); Specific Gravity,Urine 1.024 (1.001-1.035); Squamous Epithelial Cell,Urine 18 /hpf (0-4); Urobilinogen,Urine <2.0 mg/dL (<2.0); WBC,Urine 50 /hpf (0-5)
--- NOTE | 2018-10-26 01:12 | US ---
EXAMINATION TYPE: Transabdominal DATE OF EXAM: 01/11/18 COMPARISON: NONE CLINICAL HISTORY: Pain. Cramping EXAM PERFORMED: Transvaginal (TV) and Transabdominal (TA) EXAM MEASUREMENTS: GESTATIONAL AGE / DATING Physician Established: Not yet established Dates by LMP: (7 weeks/5 days) EDC: 06/09/2019 Dates by First Scan: No previous this is first scan Dates by Current Scan for: (6 weeks/3 days) EDC: 06/18/2019 MATERNAL ANATOMY Uterus: 9.8 x 6.0 x 6.6 cm Right Ovary: 2.7 x 2.4 x 2.4 cm Left Ovary: 2.6 x 1.9 x 2.7 cm Post CDS / Adnexa: wnl Presence of free fluid: no Presence of corpus luteal cyst: no Presence of subchorionic bleed: Appears to be right 2.0 x 0.8cm. GESTATION / SURVEY CRL: 0.60cm (6 weeks/3 days) Yolk Sac (normal less than 6mm): 2 Heart Rate: 132 bpm Rhythm: Normal IUP: Viable IUP Beta HcG (if available): Not available at this time Viable IUP 6w3d KEDAR 06/18/2019 HR 132 BPM IMPRESSION: Possible tiny subchorionic hemorrhage. Otherwise no complicating process seen.
[2018-10-26 01:14] LABS: Basophils % (A) 0 %; Eosinophils # (A) 0.2 k/uL (0-0.7); Eosinophils % (A) 1 %; HCT 38.9 % (34.0-46.0); HGB 13.4 gm/dL (11.4-16.0); Lymphocytes # (A) 2.9 k/uL (1.0-4.8); Lymphocytes % (A) 23 %; MCH 30.3 pg (25.0-35.0); MCHC 34.5 g/dL (31.0-37.0); MCV 87.8 fL (80.0-100.0); Mean Platelet Volume 7.3; Monocytes # (A) 0.5 k/uL (0-1.0); Monocytes % (A) 4 %; Neutrophils # (A) 9.2 k/uL (1.3-7.7); Neutrophils % (A) 71 %; Platelet Count 194 k/uL (150-450); RBC 4.43 m/uL (3.80-5.40); RDW 12.4 % (11.5-15.5); WBC 13.1 k/uL (3.8-10.6)
[2018-10-26] MEDS ORDERED: cefTRIAXone 1,000 MG VIAL (IM USE) IM STA (01:18)
[2018-10-26 01:25] LABS: Anion Gap 10 mmol/L; Blood Urea Nitrogen 15 mg/dL (7-17); Calcium 10.3 mg/dL (8.4-10.2); Carbon Dioxide 20 mmol/L (22-30); Chloride 109 mmol/L (98-107); Glucose 100 mg/dL (74-99); Potassium 3.9 mmol/L (3.5-5.1); Sodium 139 mmol/L (137-145)
[2018-10-26 03:04] LABS: HCG,Quantitative Serum 39013.8 mIU/mL
== END 2018-10-26 01:38 | disposition home or self-care (01) ==
LOC: EC 23:47
DX: O23.41 Unspecified infection of urinary tract in pregnancy, first trimester (principal); O99.331 Smoking (tobacco) complicating pregnancy, first trimester; F17.200 Nicotine dependence, unspecified, uncomplicated; Z91.018 Allergy to other foods; Z88.5 Allergy status to narcotic agent; Z88.8 Allergy status to other drugs, medicaments and biological substances; Z3A.01 Less than 8 weeks gestation of pregnancy
CPT/HCPCS: 36415; 86900; 86901; 80048; 85025; 81001; 84702; 87086; 76801; 76817; 99284; 96372; J0696

== ENCOUNTER → 2018-12-16 | Outpatient (CLI) | payer OTHER ==
[2018-12-16 14:19] LABS: Basophils % (A) 0 %; Eosinophils # (A) 0.1 k/uL (0-0.7); Eosinophils % (A) 1 %; HCT 36.8 % (34.0-46.0); HGB 12.4 gm/dL (11.4-16.0); Lymphocytes % (A) 30 %; MCH 30.2 pg (25.0-35.0); MCHC 33.6 g/dL (31.0-37.0); Mean Platelet Volume 8.1; Monocytes # (A) 0.4 k/uL (0-1.0); Monocytes % (A) 4 %; Neutrophils # (A) 6.6 k/uL (1.3-7.7); Neutrophils % (A) 65 %; Platelet Count 177 k/uL (150-450); RBC 4.09 m/uL (3.80-5.40); RDW 12.9 % (11.5-15.5); WBC 10.3 k/uL (3.8-10.6)
[2018-12-16 20:47] LABS: Urine Alcohol Negative (Negative); Urine Barbiturate Negative (Negative); Urine Cocaine Negative (Negative); Urine Methadone Negative (Negative); Urine Opiates Negative (Negative); Urine Phencyclidine Negative (Negative)
[2018-12-16 21:14] LABS: HIV 1 AB Non-Reactive (Non-Reactive); HIV AB P24 Non-Reactive (Non-Reactive); HIV P24 AG Non-Reactive (Non-Reactive)
[2018-12-16 23:37] LABS: Hemoglobin A1C 4.6 % (4.0-6.0)
== END ==
LOC: LABWHC1 12:56
PROVIDERS: ATTEND Obstetrics & Gynecology
DX: Z34.80 Encounter for supervision of other normal pregnancy, unspecified trimester (principal); Z3A.00 Weeks of gestation of pregnancy not specified
CPT/HCPCS: 36415; 80306; 82950; 83036; 85025; 86762; 86780; 86850; 86900; 86901; 87086; 87340; 87390

== ENCOUNTER 2019-06-14 06:18 | Inpatient (IN) | payer OTHER ==
[2019-06-14] MEDS ORDERED: LIDOCAINE 0.5% (PF) 5 MG/ML (50 ML SDV) SQ PRN (06:34)
[2019-06-14] MEDS ORDERED: CARBOPROST TROMETHAMINE 250 MCG/ML 1 ML AMP IM PRN (06:34)
[2019-06-14] MEDS ORDERED: TERBUTALINE 1 MG/ML VIAL SQ PRN (06:34)
[2019-06-14] MEDS ORDERED: METHYLERGONOVINE 0.2 MG/ML 1 ML AMP IM PRN (06:34)
[2019-06-14] MEDS ORDERED: OXYTOCIN 10 UNIT/ML 1 ML VIAL IM PRN (06:34)
[2019-06-14] MEDS ORDERED: OXYTOCIN 30 UNITS/500 ML NS 30 UNIT in SALINE 1 500ML.BAG IV SCH (06:45)
[2019-06-14] MEDS: LACTATED RINGERS 1,000 ML IV SCH ×3 (06:56→16:32)
[2019-06-14 07:20] VITALS: BMI 36.1
[2019-06-14 07:34] LABS: Basophils # (A) 0.1 k/uL (0-0.2); Basophils % (A) 1 %; Eosinophils # (A) 0.1 k/uL (0-0.7); Eosinophils % (A) 1 %; HCT 35.3 % (34.0-46.0); HGB 12.4 gm/dL (11.4-16.0); Lymphocytes # (A) 3.8 k/uL (1.0-4.8); Lymphocytes % (A) 32 %; MCH 32.1 pg (25.0-35.0); MCHC 35.1 g/dL (31.0-37.0); MCV 91.5 fL (80.0-100.0); Mean Platelet Volume 8.5; Monocytes # (A) 0.6 k/uL (0-1.0); Monocytes % (A) 5 %; Neutrophils # (A) 7.3 k/uL (1.3-7.7); Neutrophils % (A) 60 %; Platelet Count 220 k/uL (150-450); RBC 3.86 m/uL (3.80-5.40); RDW 14.3 % (11.5-15.5); WBC 12.2 k/uL (3.8-10.6)
[2019-06-14] MEDS ORDERED: ROPIVACAINE 100 MG, fentaNYL (PF) 200 MCG in SODIUM CHLORIDE 0.9% 76 ML EPIDURAL ONE (10:12)
[2019-06-14] MEDS ORDERED: diphenhydrAMINE 50 MG/ML 1 ML VIAL IVP PRN ×2 (12:10)
[2019-06-14] MEDS ORDERED: BENZOCAINE/MENTHOL SPRAY 1 GM/SPRAY AEROSOL TOPICAL PRN (12:10)
[2019-06-14] MEDS ORDERED: HYDROcodone/APAP 5-325MG 1 EACH TAB PO PRN (12:10)
[2019-06-14] MEDS ORDERED: WITCH HAZEL 1 EACH MED..PAD TOPICAL PRN (12:10)
[2019-06-14] MEDS ORDERED: diphenhydrAMINE 50 MG CAP PO PRN (12:10)
[2019-06-14] MEDS ORDERED: ZOLPIDEM 5 MG TAB PO PRN (12:10)
[2019-06-14] MEDS ORDERED: diphenhydrAMINE 25 MG CAP PO PRN (12:10)
[2019-06-14] MEDS ORDERED: HYDROCORTISONE 2.5% RECTAL CREAM 30 GM TUBE RECTAL PRN (12:10)
[2019-06-14] MEDS ORDERED: SIMETHICONE 80 MG CHEWABLE PO PRN (12:10)
[2019-06-14] MEDS ORDERED: HYDROcodone/APAP 7.5-325MG 1 EACH TAB PO PRN (12:10)
[2019-06-14] MEDS ORDERED: OXYTOCIN 20 UNITS/1000 ML NS 1,000 ML IV SCH (12:15)
--- NOTE | 2019-06-14 12:18 | P.HPOB ---
History of Present Illness H&P Date: 06/14/19 Chief Complaint: 39-3/7 weeks, elective induction of labor The patient is a 29-year-old 6 para 4014 admitted at 39-3/7 weeks as established by a 6 week ultrasound. She is admitted for elective induction of labor with a favorable cervix and all signs reassuring. Her has been essentially uncomplicated. She has a history of substance abuse but had negativ e drug screening during the . Group B strep status is negative. Obstetrical history: 6 para 4014 with 4 previous normal spontaneous vaginal deliveries and one early miscarriage. Current statistics are listed in history present illness. EDC of 06/18/2019 was established by a 6 week ultrasound. Laboratory workup junctures a blood type of AB- with a negative antibody screen. Rubella status is immune. The remainder of the laboratory workup was within normal limits. Early Glucola was normal. Second trimester Glucola was elevated and followed up with a normal three-hour glucose tolerance test. Group B strep status is negative. Customer Management Specialist history: Unremarkable with no history of any infections to include STDs. Review of Systems Review of systems is confined to history of present illness. Past Medical History Past Medical History: No Reported History Additional Past Medical History / Comment(s): heroin abuse, History of Any Multi-Drug Resistant Organisms: None Reported Past Surgical History: Adenoidectomy, Tonsillectomy Past Anesthesia/Blood Transfusion Reactions: No Reported Reaction Past Psychological History: Anxiety, Depression, PTSD Smoking Status: Current every day smoker Past Alcohol Use History: None Reported Additional Past Alcohol Use History / Comment(s): Patient denies any alcohol use at this time. Past Drug Use History: None Reported Additional Drug Use History / Comment(s): Patient states that she uses IV herion for about three years. - Past Family History Mother Family Medical History: Cancer Father Family Medical History: Unable to Obtain Medications and Allergies Home Medications Medication Instructions Recorded Confirmed Type No Known Home Medications 06/14/19 06/14/19 History Allergies Allergy/AdvReac Type Severity Reaction Status Date / Time blueberry Allergy Nausea & Verified 06/14/19 06:33 Vomiting tramadol Allergy Unknown Verified 06/14/19 06:33 cyclobenzaprine AdvReac Unknown Verified 06/14/19 06:33 [From Flexeril] Exam Vital Signs Temp Pulse Resp BP 06/14/19 07:16 97.8 F 82 18 126/83 Intake and Output 06/13/19 06/14/19 06/14/19 22:59 06:59 14:59 Other: Weight 92.533 kg In general, this is a well-developed, well-nourished white female in no acute distress. Her heart has a regular rhythm and rate without murmur. Her lungs are clear to auscultation bilaterally in all hall. Her abdomen is gravid, nondistended, has normal active bowel sounds, is soft, nontender, and without any palpable masses aside from the uterine fundus. Her extremities are without any cyanosis, clubbing, or edema and are nontender to palpation bilaterally. Digital cervical examination demonstrates her cervix to be 2-3 cm dilated, 60% effaced, vertex in presentation at -2-3 station. Artificial rupture of mem branes is carried out demonstrating clear fluid. Results Result Diagrams: 06/14/19 06:49 Abnormal Lab Results - Last 24 Hours (Table) 06/14/19 Range/Units 06:49 WBC 12.2 H (3.8-10.6) k/uL Assessment and Plan (1) Term Current Visit: Yes Status: Acute Code(s): Z34.90 - ENCNTR FOR SUPRVSN OF NORMAL , UNSP, UNSP TRIMESTER SNOMED Code(s): 81247940 Plan: The patient is admitted for elective induction. She understands that there is a slightly increased risk for elective induction versus labor ensuing on its own for potential section. She otherwise will have close maternal and surveillance and expectant management will be practiced. She is a good candidate for either IV or epidural analgesia, whichever she may choose.
--- NOTE | 2019-06-14 12:20 | P.PROBDLV ---
Vaginal Delivery Note - . Vaginal Delivery Note: The patient is a 29-year-old 6 para 4014 admitted at 39-3/7 weeks by good dating parameters. She is admitted for elective induction of labor with all signs reassuring. Her has been essentially entirely uncomplicated and group B strep status is negative. On labor and delivery, she had Pitocin started followed by artificial rupture of membranes demonstrating clear fluid. She had an epidural catheter placed for analgesia around the onset of the active phase of labor. She made fairly rapid progress through labor to complete and then pushed over the course of 2 pushes, 1 contraction, to a normal spontaneous vaginal delivery of a viable 7 lbs. 14 oz. baby girl with Apgars of 9 at 1 minute and 9 at 5 minutes delivered in the left occiput anterior position. The placenta was delivered spontaneously, intact, and grossly normal with a grossly normal three-vessel cord inserted approximately 2 cm from the margin of the placenta. There was a small right labial laceration which causes some gaping of the labia which was repaired with a single [id number] stitch of 3-0 chromic catgut without difficulty. Estimated blood loss for the case is approximately 100 mL. There are no complications. All sponge, instrument, and needle counts were correct. Both mother and are resting comfortably in recovery.
[2019-06-14] MEDS: IBUPROFEN 600 MG TAB PO PRN ×2 (14:24→20:32)
[2019-06-14] MEDS ORDERED: Rhogam IMMUNE GLOBULIN 1,500 UNIT/1 ML IM ONE (17:35)
[2019-06-14] MEDS: SENNOSIDES-DOCUSATE SODIUM 1 EACH TAB PO SCH (20:32)
[2019-06-14] MEDS: ACETAMINOPHEN TAB 325 MG TAB PO PRN (22:59)
[2019-06-15] MEDS: IBUPROFEN 600 MG TAB PO PRN ×2 (04:55→11:35)
[2019-06-15] MEDS: ACETAMINOPHEN TAB 325 MG TAB PO PRN (08:07)
[2019-06-15] MEDS: SENNOSIDES-DOCUSATE SODIUM 1 EACH TAB PO SCH (08:08)
[2019-06-15 08:12] VITALS: BP 113/81; PULSE 77; RESP 18; TEMP 97.7
--- NOTE | 2019-06-15 08:38 | P.DS ---
Providers Date of admission: 06/14/19 06:18 Expected date of discharge: 06/15/19 Attending physician: Ryder Mcdaniel Primary care physician: Stated None - Discharge Diagnosis(es) (1) Term Current Visit: Yes Status: Acute (2) Normal spontaneous vaginal delivery Current Visit: Yes Status: Acute Hospital Course: The patient is a 29-year-old 6 para 4014 admitted at 39-3/7 weeks by good dating parameters. She is admitted for elective induction with an uncomplicated . Group B strep status is negative. On labor and delivery, she had Pitocin started followed by artificial rupture of membranes for clear fluid. She had an epidural catheter placed for analgesia and then progressed fairly quickly through the active phase of labor to complete. She pushed over the course of 2 pushes, 1 contraction, to a normal spontaneous vaginal delivery of a viable 7 lbs. 14 oz. baby girl with Apgars of 9 at 1 minute and 9 at 5 minutes. Her course was unremarkable with vital signs remained stable and her temperature was afebrile throughout. She was deemed stable for discharge on day 1 was discharged home to follow-up in the office in 6 weeks' time routinely. Discharge instructions included calling for any significantly increased bleeding or foul-smelling lochia, significantly increased fever abdominal pain, perineal complaints, breast complaints, or anything else that concerned her. She was additionally instructed to have nothing in the vagina for at least 6 weeks time to include intercourse. She understood her instructions and agrees to follow up as noted above. Discharge medications included only [id number] analgesic pain medications. She has not chosen to breast-feed. Maternal blood type is AB- and cord blood was sent for evaluation for the necessity of RhoGAM prior to discharge. Rubella status is immune. Procedures: #1. Pitocin induction #2. Artificial rupture of membranes #3. Epidural analgesia #4. Normal spontaneous vaginal delivery #5. Repair of right labial laceration Patient Condition at Discharge: Good Plan - Discharge Summary New Discharge Prescriptions: No Action No Known Home Medications Discharge Medication List No Known Home Medications 06/14/19 [History] Follow up Appointment(s)/Referral(s): Ryder Mcdaniel MD [STAFF PHYSICIAN] - 6 Weeks Discharge Disposition: HOME SELF-CARE
== END 2019-06-15 15:30 | disposition home or self-care (01) | DRG 807 ==
LOC: 4FBP 06:18
PROVIDERS: ADMIT Obstetrics & Gynecology; ATTEND Obstetrics & Gynecology
PROC: 10E0XZZ Delivery of Products of Conception, External Approach (ICD-10-PCS; principal; 2019-06-14)
PROC: 0HQ9XZZ Repair Perineum Skin, External Approach (ICD-10-PCS; 2019-06-14)
PROC: 3E033VJ Introduction of Other Hormone into Peripheral Vein, Percutaneous Approach (ICD-10-PCS; 2019-06-14)
PROC: 10907ZC Drainage of Amniotic Fluid, Therapeutic from Products of Conception, Via Natural or Artificial Opening (ICD-10-PCS; 2019-06-14)
PROC: 00HU33Z Insertion of Infusion Device into Spinal Canal, Percutaneous Approach (ICD-10-PCS; 2019-06-14)
PROC: 3E0R3BZ Introduction of Anesthetic Agent into Spinal Canal, Percutaneous Approach (ICD-10-PCS; 2019-06-14)
PROC: 3E0234Z Introduction of Serum, Toxoid and Vaccine into Muscle, Percutaneous Approach (ICD-10-PCS; 2019-06-14)
DX: O70.0 First degree perineal laceration during delivery (principal); Z37.0 Single live birth; O99.334 Smoking (tobacco) complicating childbirth; O99.344 Other mental disorders complicating childbirth; O26.893 Other specified pregnancy related conditions, third trimester; Z67.31 Type AB blood, Rh negative; Z3A.39 39 weeks gestation of pregnancy; F32.9 Major depressive disorder, single episode, unspecified; F17.200 Nicotine dependence, unspecified, uncomplicated; F43.10 Post-traumatic stress disorder, unspecified; F11.11 Opioid abuse, in remission; Z98.890 Other specified postprocedural states; Z88.5 Allergy status to narcotic agent; Z88.8 Allergy status to other drugs, medicaments and biological substances; Z91.018 Allergy to other foods; Z80.9 Family history of malignant neoplasm, unspecified
CPT/HCPCS: 85025; 85461; 86850; 86900; 86901

== ENCOUNTER 2020-05-13 22:16 | Emergency (ER) | payer OTHER ==
[2020-05-13 22:21] VITALS: BP 134/83; PULSE 104; RESP 20; TEMP 98.9
[2020-05-13] MEDS ORDERED: IBUPROFEN 600 MG TAB PO STA (22:32)
--- NOTE | 2020-05-13 22:49 | ED ---
General Adult HPI - General Chief complaint: Extremity Injury, Upper Stated complaint: L Shoulder Pain Source: patient, RN notes reviewed Mode of arrival: ambulatory Limitations: no limitations - History of Present Illness Initial comments: 30-year-old female with a past medical history of heroin abuse presents to the emergency department for left shoulder pain. Patient states about a week and a half ago she started having pain on the left shoulder. Patient reports that she thought she slept on it wrong that it has progressively worsened. It is painful to move. Patient denies fevers or chills. States sometimes shooting pain comes from her left shoulder down her hand. Patient has not taken anything for pain. She denies injury. Patient has no other complaints at this time including shortness of breath, chest pain, abdominal pain, nausea or vomiting, headache, or visual changes. - Related Data Home Medications Medication Instructions Recorded Confirmed No Known Home Medications 06/14/19 06/14/19 Allergies Allergy/AdvReac Type Severity Reaction Status Date / Time blueberry Allergy Nausea & Verified 05/13/20 22:21 Vomiting tramadol Allergy Unknown Verified 05/13/20 22:21 cyclobenzaprine AdvReac Unknown Verified 05/13/20 22:21 [From Flexeril] Review of Systems ROS Statement: Those systems with pertinent positive or pertinent negative responses have been documented in the HPI. ROS Other: All systems not noted in ROS Statement are negative. Past Medical History Past Medical History: No Reported History Additional Past Medical History / Comment(s): heroin abuse, History of Any Multi-Drug Resistant Organisms: None Reported Past Surgical History: Adenoidectomy, Tonsillectomy Past Anesthesia/Blood Transfusion Reactions: No Reported Reaction Past Psychological History: Anxiety, Depression, PTSD Past Alcohol Use History: None Reported Past Drug Use History: Heroin - Past Family History Mother Family Medical History: Cancer Father Family Medical History: Unable to Obtain General Exam Limitations: no limitations General appearance: alert, in no apparent distress Head exam: Present: atraumatic, normocephalic, normal inspection Eye exam: Present: normal appearance, PERRL, EOMI. Absent: scleral icterus, conjunctival injection, periorbital swelling ENT exam: Present: normal exam, mucous membranes moist Neck exam: Present: normal inspection, full ROM. Absent: tenderness, meningismus, lymphadenopathy Respiratory exam: Present: normal lung sounds bilaterally. Absent: respiratory distress, wheezes, rales, rhonchi, stridor Cardiovascular Exam: Present: regular rate, normal rhythm, normal heart sounds. Absent: systolic murmur, diastolic murmur, rubs, gallop, clicks GI/Abdominal exam: Present: soft, normal bowel sounds. Absent: distended, tenderness, guarding, rebound, rigid Extremities exam: Present: tenderness (tenderness to the anterior aspect of the left shoulder. No AC joint tenderness. No humeral tenderness.), normal capillary refill (capillary refill less than 2 seconds, radial pulse 2+ in the left upper extremity.). Absent: full ROM (patient has 45 of abduction and flexion of the left shoulder. Full range motion of the left elbow and left hand.) Course Vital Signs 05/13/20 22:17 Temperature 98.9 F Pulse Rate 104 H Respiratory 20 Rate Blood Pressure 134/83 O2 Sat by Pulse 100 Oximetry Medical Decision Making - Medical Decision Making HPI as documented. Patient does have limited range of motion of the left shoulder to about 45 flexion and abduction. No erythema or warmth of the left shoulder. No evidence of a septic joint. Neurovascular status intact. X-ray is negative. At this time recommend patient follow-up with orthopedics. She will continue to take anti-inflammatory pain medication. She'll return here for any worsening symptoms such as fevers which she is agreeable to. Disposition Clinical Impression: Shoulder pain, left Disposition: HOME SELF-CARE Condition: Good Instructions (If sedation given, give patient instructions): Shoulder Pain (ED) Additional Instructions: please take Motrin and Tylenol for pain. Please practice range of motion exercises of the left shoulder. Follow-up with orthopedics in one to 2 days. Return here to the emergency room should she have any worsening symptoms. Is patient prescribed a controlled substance at d/c from ED?: No Referrals: Devan Gusman MD [STAFF PHYSICIAN] - 1-2 days Time of Disposition: 23:03
--- NOTE | 2020-05-13 23:00 | XR ---
EXAMINATION TYPE: XR shoulder complete LT DATE OF EXAM: 05/13/2020 COMPARISON: NONE HISTORY: Shoulder pain TECHNIQUE: 2 views FINDINGS: There is no fracture nor dislocation. Joint spaces appear normal. There are no pathologic c alcifications. IMPRESSION: Negative left shoulder exam.
== END 2020-05-13 23:11 | disposition home or self-care (01) ==
LOC: EC 22:16
DX: M25.512 Pain in left shoulder (principal); Z91.018 Allergy to other foods; Z88.5 Allergy status to narcotic agent; Z88.8 Allergy status to other drugs, medicaments and biological substances
CPT/HCPCS: 99283

== ENCOUNTER → 2021-12-25 | Outpatient (CLI) | payer OTHER ==
--- NOTE | 2021-12-25 14:00 | US ---
EXAMINATION TYPE: Transabdominal DATE OF EXAM: 12/25/2021 1:46 PM COMPARISON: NONE CLINICAL HISTORY: Z36.87 Uncertain last menstral period. early ob, EXAM PERFORMED: OBTA EXAM MEASUREMENTS: GESTATIONAL AGE / DATING Physician Established: Not yet established Dates by LMP: 8 weeks/5 days) EDC: 08/01/2022 Dates by First Scan: No previous this is first scan Dates by Current Scan for: (7 weeks/4 days) EDC: 08/09/2022 MATERNAL ANATOMY Uterus: 12.2 x 7.9 x 6.5cm Right Ovary: not seen Left Ovary: 3.0 x 2.8 x 2.2cm Post CDS / Adnexa: wnl Presence of free fluid: no Presence of corpus luteal cyst: yes - left ovary = 2.2cm Presence of subchorionic bleed: 1.7 x 1.3 x 0.8cm GESTATION / SURVEY CRL: 1.3cm (7 weeks/4 days) MSD: wnl Yolk Sac (normal less than 6mm): 3mm Heart Rate: 160 bpm Rhythm: Normal IUP: Viable IUP Date of LMP: 10/25/2021 IMPRESSION: Single viable intrauterine .
== END | disposition home or self-care (01) ==
LOC: RADUSWWP 13:15
PROVIDERS: ATTEND Obstetrics & Gynecology
DX: Z36.87 Encounter for antenatal screening for uncertain dates (principal)
CPT/HCPCS: 76801

== ENCOUNTER → 2022-05-20 | Outpatient (CLI) | payer OTHER | END | disposition home or self-care (01) | LOC: LABWHC1 10:40 | PROVIDERS: ATTEND Obstetrics & Gynecology | DX: Z36.9 Encounter for antenatal screening, unspecified (principal) | CPT/HCPCS: 36415; 82950 ==

== ENCOUNTER 2022-06-13 03:22 | Outpatient (CLI) | payer OTHER ==
[2022-06-13 04:06] LABS: Amorphous Sediment,Urine Rare /hpf; Appearance,Urine Cloudy (Clear); Bacteria,Urine Rare /hpf; Bilirubin,Urine Negative (Negative); Blood,Urine Negative (Negative); Color,Urine Light Yellow; Glucose,Urine (UA) Negative (Negative); Ketones,Urine Negative (Negative); Leukocyte Esterase,Urine Negative (Negative); Mucus,Urine Rare /hpf; Nitrite,Urine Negative (Negative); Protein,Urine Negative (Negative); RBC,Urine <1 /hpf (0-5); Specific Gravity,Urine 1.006 (1.001-1.035); Squamous Epithelial Cell,Urine 1 /hpf (0-4); Urobilinogen,Urine <2.0 mg/dL (<2.0); WBC,Urine 1 /hpf (0-5)
[2022-06-13 04:37] VITALS: BP 133/82; PULSE 106; RESP 16; TEMP 96.1
--- NOTE | 2022-08-07 17:31 | P.MSEPDOC ---
Presenting Problems - Arrival Data Date of Arrival on Unit: 06/13/22 Time of Arrival on Unit: 03:28 Mode of Transport: Ambulatory - Complaint OB-Reason for Admission/Chief Complaint: Pain Comment: Upper ab/fundal pain x 4 hrs Medical History - Information : 7 Para: 5 Term: 5 : 0 Abortions: Spontaneous or Elective: 1 Number of Living Children: 5 - Gestational Age Gestational Age by KEDAR (wks/days): 31 Weeks and 6 Days Review of Systems - Review of Systems Constitutional: No problems Breast: No problems ENT: No problems Cardiovascular: No problems Respiratory: No problems Gastrointestinal: No problems Genitourinary: No problems Musculoskeletal: No problems Neurological: No problems Skin: No problems Vital Signs - Temperature Temperature: 96.1 F Temperature Source: Temporal Artery Scan - Pulse Right Sitting Brachial Pulse Rate: 106 Pulse Assessment Method: Automatic Cuff - Respirations Respiratory Rate: 16 Oxygen Delivery Method: Room Air O2 Sat by Pulse Oximetry: 99 - Blood Pressure Right Arm Sitting Blood Pressure: 133/82 Blood Pressure Mean: 99 Blood Pressure Source: Automatic Cuff Medical Screen Scoring - Cervical Exam Dilation (cm): 0 Effacement (%): 0 Station: -3 Membranes: Intact - Uterine Contractions Intensity: Mild Resting: Soft to palpation - Assessment - Baby A Baseline FHR: 130 Heart Rate - NICHD Category: Category I (Normal) NST: Reactive Physician Notification - Physician Notified Physician Notified Date: 06/13/22 Physician Notified Time: 04:15 Physician: Selena Alan New Order Received: Yes - Notification Comment Comment: Spk c\Dr. Alan, advsd , 32 03/17, complaints of upper ab/fundal area pain that radiates to sides and back, does not increase c\palpation, nontender to touch, started at 2300. Reviewed UA results. No N/V/D. Neg PIH physical asst. Reactive NST, FFN collected, SVE closed/thick/-3, firm. Pt states pain has resolved since arriving to triage. Orders rec'd to dc home, follow up as scheduled 06/18 c\Violeta. Maternal Triage Index - Maternal Triage Index Presenting for scheduled procedure w/no complaint: No - Stat/Priority 1 Stat Priority 1: No - Urgent/Priority 2 Urgent Priority 2: Yes Provider Notified: Selena Alan Provider Notified Time: 04:15 Criteria Met for Priority 2: 32 /, ab pain Disposition - Disposition OB Disposition: Discharge to home, Written follow up instructions reviewed Discharge Date: 06/13/22 Discharge Time: 04:25 I agree with the RN Medical Screening Exam: Yes Case reviewed; plan agreed upon as documented in EMR&OBIX.: Yes Diagnosis: RELATED CONDITIONS, UNSPECIFIED, THIRD TRIMESTER
== END 2022-06-13 04:25 | disposition home or self-care (01) ==
LOC: FBPOP 03:22
PROVIDERS: ATTEND Obstetrics & Gynecology Obstetrics
DX: O26.93 Pregnancy related conditions, unspecified, third trimester (principal); Z3A.31 31 weeks gestation of pregnancy; F17.200 Nicotine dependence, unspecified, uncomplicated; Z91.011 Allergy to milk products; Z91.018 Allergy to other foods; Z88.5 Allergy status to narcotic agent; Z88.8 Allergy status to other drugs, medicaments and biological substances
CPT/HCPCS: 59025; 81001; G0463; 99213

== ENCOUNTER 2022-08-09 06:20 | Inpatient (IN) | payer OTHER ==
[2022-08-09] MEDS ORDERED: METHYLERGONOVINE 0.2 MG/ML 1 ML AMP IM PRN (06:33)
[2022-08-09] MEDS ORDERED: CARBOPROST TROMETHAMINE 250 MCG/ML 1 ML AMP IM PRN (06:33)
[2022-08-09] MEDS ORDERED: TERBUTALINE 1 MG/ML VIAL SQ PRN (06:33)
[2022-08-09] MEDS ORDERED: LIDOCAINE 0.5% (PF) 5 MG/ML (50 ML SDV) SQ PRN (06:33)
[2022-08-09] MEDS ORDERED: OXYTOCIN 10 UNIT/ML 1 ML VIAL IM PRN (06:33)
[2022-08-09] MEDS: LACTATED RINGERS 1,000 ML IV SCH ×3 (06:54→08:38)
[2022-08-09 07:02] LABS: Basophils # (A) 0.1 k/uL (0-0.2); Basophils % (A) 0 %; Eosinophils # (A) 0.1 k/uL (0-0.7); Eosinophils % (A) 1 %; HCT 38.3 % (34.0-46.0); HGB 13.9 gm/dL (11.4-16.0); Lymphocytes # (A) 4.1 k/uL (1.0-4.8); Lymphocytes % (A) 27 %; MCH 32.6 pg (25.0-35.0); MCHC 36.2 g/dL (31.0-37.0); Monocytes # (A) 0.7 k/uL (0-1.0); Monocytes % (A) 4 %; Neutrophils # (A) 10.2 k/uL (1.3-7.7); Neutrophils % (A) 66 %; Platelet Count 254 k/uL (150-450); RBC 4.25 m/uL (3.80-5.40); RDW 13.8 % (11.5-15.5); WBC 15.4 k/uL (3.8-10.6)
[2022-08-09] MEDS ORDERED: SODIUM CHLORIDE 0.9% 100 ML BAG ONE (07:30)
[2022-08-09] MEDS ORDERED: ROPIVACAINE 5 MG/ML 20 ML AMPULE ONE (07:30)
[2022-08-09] MEDS ORDERED: PHENYLEPHRINE-0.9% NACL SYG 1,000 MCG/10 ML SYRINGE ONE (07:30)
[2022-08-09] MEDS ORDERED: fentaNYL (PF) 50 MCG/ML 5 ML AMP ONE (07:30)
[2022-08-09] MEDS ORDERED: SIMETHICONE 80 MG CHEWABLE PO PRN (08:38)
[2022-08-09] MEDS ORDERED: LANOLIN CREAM 5 GM TUBE TOPICAL PRN (08:38)
[2022-08-09] MEDS ORDERED: BENZOCAINE/MENTHOL SPRAY 1 GM/SPRAY AEROSOL TOPICAL PRN (08:38)
[2022-08-09] MEDS ORDERED: ZOLPIDEM 5 MG TAB PO PRN (08:38)
[2022-08-09] MEDS ORDERED: ACETAMINOPHEN TAB 325 MG TAB PO PRN (08:38)
[2022-08-09] MEDS ORDERED: diphenhydrAMINE 25 MG CAP PO PRN (08:38)
[2022-08-09] MEDS ORDERED: diphenhydrAMINE 50 MG CAP PO PRN (08:38)
[2022-08-09] MEDS ORDERED: diphenhydrAMINE 50 MG/ML 1 ML VIAL IVP PRN ×2 (08:38)
[2022-08-09] MEDS ORDERED: HYDROCORTISONE 2.5% RECTAL CREAM 30 GM TUBE RECTAL PRN (08:38)
[2022-08-09] MEDS ORDERED: OXYTOCIN 30 UNITS/500 ML NS 30 UNIT in SALINE 1 500ML.BAG IV SCH (08:45)
--- NOTE | 2022-08-09 08:56 | P.PROBDLV ---
Vaginal Delivery Note - . Vaginal Delivery Note: Viable male delivered [id number] 32-year-old 015 at 40-0/7 weeks presents to labor and delivery with complaints of spontaneous rupture of membranes and contractions. Patient was admitted to labor and delivery and quickly requested epidural. Epidural was p laced by the anesthesia department. Patient had noted low blood pressure after epidural placement with heart tones dipping into the 70s. Patient was noted to be complete and began pushing. With excellent maternal effort patient did bring the down to +1+2 station. Patient was counseled on the need for vacuum assist vaginal delivery secondary to bradycardia. Patient consented, vacuum was placed and placement was confirmed. With 1 pull head was delivered vacuum was released, the anterior/posterior shoulder along with the body was placed on the maternal abdomen. Spontaneous cry was noted at . The umbilical cord was doubly clamped and cut and the infant was handed to waiting operator automated process. Cord blood was then taken. The placenta was delivered spontaneously intact with three-vessel cord being noted. The uterus was noted to be firm and below the umbilicus. Patient continued to have some difficulty taking a deep breath. Blood pressure was noted to be low anesthesia was at the bedside. Fluid boluses was given, and oxygen remains on the patient. Vital signs of the patient are noted to be stable. On inspection the patient's vaginal vault no lacerations were appreciated, counts were noted to be correct 2 at the end of the delivery. Patient and tolerated delivery well and are resting comfortably.
--- NOTE | 2022-08-09 08:56 | P.HPOB ---
History of Present Illness H&P Date: 08/09/22 Chief Complaint: IUP @ 40 0/7 weeks, SROM 32 yo at 40 0/7 weeks that presents to labor and delivery with complaints of spontaneous rupture of membranes and contractions. Patient states she ruptured around 4 AM. She noted the fluid to be clear in nature. She has been receiving routine care, patient is a history of substance abuse but states she has not used in over 3 years. Patient did have COVID 19 in September 2021. Patient was being treated as a presumptive GDM and she didn't tolerate her gestational diabetes screen. All blood sugars have been normal. On bloodwork this patient is a blood type of AB-, rubella status immune, hepatitis B surface antigen negative, RPR is nonreactive, HIV is negative, hemoglobin A1c is 5.1 Review of Systems Constitutional: Denies chills, Denies fatigue, Denies fever Ears, nose, mouth and throat: Denies headache Cardiovascular: Reports leg edema Respiratory: Denies dyspnea Gastrointestinal: Denies nausea, Denies vomiting Genitourinary: Reports Past Medical History Past Medical History: No Reported History Additional Past Medical History / Comment(s): heroin abuse, History of Any Multi-Drug Resistant Organisms: None Reported Past Surgical History: Adenoidectomy, Tonsillectomy Past Anesthesia/Blood Transfusion Reactions: No Reported Reaction Past Psychological History: Anxiety, Depression, PTSD Smoking Status: Current every day smoker Past Alcohol Use History: None Reported Additional Past Alcohol Use History / Comment(s): Patient denies any alcohol use at this time. Past Drug Use History: Heroin Additional Drug Use History / Comment(s): Patient states that she uses IV herion for about three years. - Past Family History Mother Family Medical History: Cancer Father Family Medical History: Unable to Obtain Medications and Allergies Home Medications Medication Instructions Recorded Confirmed Type No Known Home Medications 06/14/19 06/13/22 History Allergies Allergy/AdvReac Type Severity Reaction Status Date / Time blueberry Allergy Nausea & Verified 08/09/22 06:33 Vomiting tramadol Allergy Unknown Verified 08/09/22 06:33 cyclobenzaprine AdvReac Unknown Verified 08/09/22 06:33 [From Flexeril] milk AdvReac Nausea & Verified 08/09/22 06:33 Vomiting Exam Osteopathic Statement: *. No significant issues noted on an osteopathic structural exam other than those noted in the History and Physical/Consult. 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 Results Result Diagrams: 08/09/22 06:40 Abnormal Lab Results - Last 24 Hours (Table) 08/09/22 Range/Units 06:40 WBC 15.4 H (3.8-10.6) k/uL Neutrophils # 10.2 H (1.3-7.7) k/uL Assessment and Plan (1) Active labor Current Visit: Yes Status: Acute Code(s): SIO9295 - SNOMED Code(s): 724102506 (2) Rh negative status during Current Visit: No Status: Acute Code(s): O26.899 - OTH RELATED CONDITIONS, UNSPECIFIED TRIMESTER; Z67.91 - UNSPECIFIED BLOOD TYPE, RH NEGATIVE SNOMED Code(s): 527648811 Plan: 32-year-old 015 at 40-0/7 weeks presents with complaints of rupture of membranes and contractions. Patient is noted to be grossly ruptured and 600 m dilated. Patient is admitted to labor and delivery. Patient does request epidural placement incision has been notified. Anticipate spontaneous vaginal delivery later this morning.
[2022-08-09] MEDS: IBUPROFEN 600 MG TAB PO SCH ×3 (09:39→20:33)
[2022-08-09 10:45] LABS: Amphetamine Screen,Urine Not Detected (NotDetected); Barbiturate Screen,Urine Not Detected (NotDetected); Benzodiazepines Screen,Urine Not Detected (NotDetected); Cocaine Screen,Urine Not Detected (NotDetected); Methadone Screen, Urine Not Detected (NotDetected); Opiate Screen,Urine Not Detected (NotDetected); Oxycodone Screen, Urine Not Detected (NotDetected); Phencyclidine Screen,Urine Not Detected (NotDetected); Tricyclic Antidepressant,Urine Not Detected (NotDetected); Urn Cannabinoid Scrn Detected (NotDetected)
[2022-08-09] MEDS: SENNOSIDES-DOCUSATE SODIUM 1 EACH TAB PO SCH (20:34)
[2022-08-10] MEDS: IBUPROFEN 600 MG TAB PO SCH ×2 (03:05→07:51)
[2022-08-10 04:47] VITALS: RESP 16
--- NOTE | 2022-08-10 05:47 | P.DS ---
Providers Date of admission: 08/09/22 06:24 Expected date of discharge: 08/10/22 Attending physician: Ryder Mcdaniel Primary care physician: Stated None - Discharge Diagnosis(es) (1) Active labor Current Visit: Yes Status: Acute (2) Rh negative status during Current Visit: No Status: Acute (3) Status post vacuum-assisted vaginal delivery Current Visit: Yes Status: Acute Hospital Course: 32-year-old G7 now [id number] presented to labor and delivery at 40-0/7 weeks with complaints of spontaneous rupture of membranes. Patient has been receiving routine care with [facility], she does have a history of substance abuse and has been "clean" for the last 3 years. UDS on admission was negative with the exception of marijuana. Patient was admitted and quickly requested epidural. Epidural was placed by the anesthesia department. Patient had noted low blood pressure after epidural placement with heart tones dipping down into the 70s patient was noted to be complete began pushing. With excellent maternal effort patient brought the down to a +1+2 station. Patient was counseled on need for vacuum assist secondary to bradycardia. With 1 pull of the vacuum she had a vacuum-assisted vaginal delivery of a viable male weight of 8 lbs. 5 oz. No vaginal lacerations were appreciated after delivery. Patient's course has been uneventful. On this day #1 she is a bleeding and voiding without difficulty. She is tolerating a regular diet without nausea or vomiting. She states her pain is well-controlled. She denies concerns. She would like discharge home later today. Patient Condition at Discharge: Good Plan - Discharge Summary New Discharge Prescriptions: No Action No Known Home Medications Discharge Medication List No Known Home Medications 06/14/19 [History] Follow up Appointment(s)/Referral(s): Ryder Mcdaniel MD [STAFF PHYSICIAN] - 6 Weeks Patient Instructions/Handouts: Vaginal Delivery (DC), Vaginal Delivery (GEN) Activity/Diet/Wound Care/Special Instructions: Patient is counseled no tub baths or intercourse until 6 weeks . Patient is asked to call the office and schedule a routine visit. bleeding is discussed and reviewed. All questions are answered. Should patient have any concerns prior to her 6 week check she is urged to call the office. Discharge Disposition: HOME SELF-CARE
[2022-08-10] MEDS ORDERED: ROPIVACAINE 100 MG, fentaNYL (PF). 200 MCG in SODIUM CHLORIDE 0.9% 76 ML EPIDURAL ONE (06:12)
[2022-08-10 07:35] VITALS: BP 130/80; PULSE 76; TEMP 97.8
[2022-08-10] MEDS: SENNOSIDES-DOCUSATE SODIUM 1 EACH TAB PO SCH (10:16)
== END 2022-08-10 12:11 | disposition home or self-care (01) | DRG 807 ==
LOC: FBPOP 06:20 → 4FBP 06:24
PROVIDERS: ADMIT Obstetrics & Gynecology Obstetrics; ATTEND Obstetrics & Gynecology
PROC: 10D07Z6 Extraction of Products of Conception, Vacuum, Via Natural or Artificial Opening (ICD-10-PCS; principal; 2022-08-09)
PROC: 4A0HXCZ Measurement of Products of Conception, Cardiac Rate, External Approach (ICD-10-PCS; 2022-08-09)
PROC: 10907ZC Drainage of Amniotic Fluid, Therapeutic from Products of Conception, Via Natural or Artificial Opening (ICD-10-PCS; 2022-08-09)
DX: O42.92 Full-term premature rupture of membranes, unspecified as to length of time between rupture and onset of labor (principal); Z37.0 Single live birth; F17.210 Nicotine dependence, cigarettes, uncomplicated; O76 Abnormality in fetal heart rate and rhythm complicating labor and delivery; F32.A Depression, unspecified; F43.10 Post-traumatic stress disorder, unspecified; F41.9 Anxiety disorder, unspecified; O24.429 Gestational diabetes mellitus in childbirth, unspecified control; O26.893 Other specified pregnancy related conditions, third trimester; O99.334 Smoking (tobacco) complicating childbirth; O99.344 Other mental disorders complicating childbirth; Z3A.40 40 weeks gestation of pregnancy; Z67.91 Unspecified blood type, Rh negative; Z86.16 Personal history of COVID-19; Z91.018 Allergy to other foods; Z88.5 Allergy status to narcotic agent; Z91.011 Allergy to milk products; Z86.59 Personal history of other mental and behavioral disorders
CPT/HCPCS: 80306; 85025; 86850; 86900; 86901; 99213